=== PATIENT | female | born 1980 | race Caucasian/White ===

== ENCOUNTER → 2019-02-13 09:35 | Outpatient (BNVA) | payer MEDICARE, MEDICAID, SELFPAY | PROVIDERS: Family Provider Physician Assistant; PCP Physician Assistant; Referring Provider Physician Assistant; Visit Provider Specialist | DX: G43.019 Migraine without aura, intractable, without status migrainosus (principal); G62.9 Polyneuropathy, unspecified; Z87.891 Personal history of nicotine dependence | CPT/HCPCS: 99204 ==

== ENCOUNTER 2019-03-27 13:37 | Outpatient (CLI) | payer MEDICARE, MEDICAID, SELFPAY ==
--- NOTE | 2019-03-27 | XR_ITS ---
WS: [id number] LUMBAR SPINE TECHNIQUE: 3 views of the lumbar spine CLINICAL INFORMATION: LOW BACK PAIN COMPARISON: None. FINDINGS: Five pro-ajx-wekrkna lumbar vertebral bodies. Minimal lumbar curve convex right. Cholecystectomy clip s. Mild disc space narrowing L4-L5 and L5-S1. No compression fractures. No spondylolisthesis. Visualized sacroiliac joints are normal. Normal visua lized soft tissues. Partially visualized bowel gas pattern is normal. XR/XR lumbar spine 2-3V* [id number] IMPRESSION: 1. Minimal lumbar curve convex right. 2. Mild disc space narrowing L4-L5 and L5-S1.
--- NOTE | 2019-03-27 | US_ITS ---
WS: [id number] ULTRASOUND ABDOMEN CLINICAL INFORMATION: LIVER FAILURE ACUTE COMPARISON: None. FINDINGS: Liver Size: Normal. Craniocaudal length: 12.9 cm. Echogenicity: Coarse consistent with fatty infiltration Surface nodularity: None. Mass (size and location): None. Bile ducts Intrahepatic ducts: Normal. Common bile duct diameter: 3.7 mm. Gallbladder Removed Pancreas Not well seen Spleen Splenomegaly: None. Craniocaudal length: 11.0 cm. Right kidney: Normal. Hydronephrosis: None. Size: 10.6 cm x 4.6 cm x 4.8 cm Left kidney: Normal. Hydronephrosis: None. Size: 9.2 cm x 5.6 cm x 4.9 cm. Abdominal aorta and IVC Visualized portions are normal. Ascites: None. US/US abdomen complete* [id number] IMPRESSION: 1. Slightly coarse hepatic echogenicity consistent with fatty infiltration.Cor relation with liver function tests. 2. Abdomen otherwise unremarkable
== END 2019-03-27 13:38 | disposition home or self-care (01) ==
LOC: RADOUTREAD 15:11
PROVIDERS: Family Provider Physician Assistant; PCP Physician Assistant; Visit Provider Physician Assistant
DX: Z76.89 Persons encountering health services in other specified circumstances (principal)

== ENCOUNTER 2019-05-21 09:41 | Outpatient (CLI) | payer MEDICARE, MEDICAID, SELFPAY ==
--- NOTE | 2019-05-21 09:47 | MR_ITS ---
WS: [id number] MRI CERVICAL SPINE NONCONTRAST TECHNIQUE: Sagittal T1, T2 and STIR imaging. Axial T2, gradient, and fiesta imaging. CLINICAL INFORMATION: ATAXIA COMPARISON: MRI 9 2018 FINDINGS: Straightening of the normal cervical lordosis. Some images are limited by motion. Cord signal is norm al. Minimal disc bulging at C3-C4 C4-C5 and C5-C6. No significant central canal stenosis. C2-C3: Normal. C3-C4: Minimal annular bulging. Spinal canal foramen are patent. C4-C5: Minimal disc bulging with a tiny central protrusion. Mild facet arthropathy. Mild right forami nal narrowing. Spinal canal and left foramen are patent.. C5-C6: Mild disc bulging with osteophytic ridging. Mild to moderate right and no significant left for aminal narrowing. Mild facet arthropathy. Spinal canal is patent. C6-C7: Mild osteophytic ridging. Mild right and no significant left foraminal narrowing. Spinal canal is patent. C7-T1: Normal. Visualized brain stem structures: Normal. Prevertebral soft tissues: Normal. MR/MR cervical spin wo con* [id number] IMPRESSION: 1. Straightening of the normal cervical lordosis. Cord signal is normal. No si gnificant central canal narrowing. 2. Osteophytic ridging C5-C6 with mild to moderate right foraminal narrowing u nchanged. Mild facet arthropathy. 3. Minimal disc bulging C3-C4 and C4-C5 with tiny shallow central protrusions . This is unchanged. 4. Mild right C4-5 and C6-7 foraminal narrowing.
--- NOTE | 2019-05-21 09:48 | MR_ITS ---
WS: [id number] MRI LUMBAR SPINE NONCONTRAST TECHNIQUE: Sagittal T1, T2 and STIR imaging. Axial T1 and T2 imaging. CLINICAL INFORMATION: LOW BACK PAIN COMPARISON: MRI October 11, 2018 FINDINGS: Mild lumbar curve. No acute compression. Mild disc bulging L4-L5 and L5-S1. A few Schmorl's nodes in the lower thoracic spine. L1-L2: Normal. L2-L3: Normal. L3-L4: No significant disc bulging. Mild facet arthropathy. Spinal canal and foramen are patent. L4-L5: Mild annular bulging with a small shallow central protrusion. Narrowing of subarticular recess with slight impingement traversing L5 nerve roots. Mild facet arthropathy. Mild bilateral foraminal narrowing. L5-S1: Mild disc bulging with a shallow central protrusion. Slight effacement of ventral thecal sac. Slight encroachment traversing S1 nerve roots. Mild bilateral foraminal narrowing left greater than r ight Mild facet arthropathy. Visualized pelvic bony structures: Normal. Paravertebral soft tissues: Normal. MR/MR lumbar spine wo con* [id number] IMPRESSION: 1. Mild lumbar curve. No acute compression. No high-grade central canal stenos is. 2. Shallow central disc protrusion L4-5 impinges the subarticular recess bilat erally and traversing L5 nerve roots. This is unchanged from previous. 3. Shallow central disc protrusion L5-S1 with encroachment traversing S1 nerve roots bilaterally. 4. Mild bilateral L4-5 and left greater than right L5-S1 foraminal narrowing. 5. Mild facet arthropathy L4-L5 and L5-S1. 6. No significant interval changes since October 11, 2018.
--- NOTE | 2019-05-21 09:48 | MR_ITS ---
WS: [id number] MRI HEAD WITH CONTRAST TECHNIQUE: Sagittal T1, T2 axial, T2 axial FLAIR, axial susceptibility weighted imaging, axial diffus ion weighted images, and coronal T2 images were obtained. Pre and post-T1 axial and post T1 coronal i mages. ADC and FSPGR images. CLINICAL INFORMATION: ATAXIA COMPARISON: CT September 11, 2017 FINDINGS: No evidence of restricted diffusion to suggest acute ischemia. Ventricular system and basal cisterns are patent. Moderate to advanced patchy supra tentorial white matter changes nonspecific in a patient this age but can be seen with hypertension, diabetes, collagen vascular disease, Lyme disease, and d emyelinating disease. Some of the lesions are pericallosal distribution although no significant atrop hy involving the corpus callosum. No significant T1 hypointense lesion load. No abnormal gadolinium e nhancement to indicate active demyelination. Normal posterior fossa. Normal vascular flow voids at the skull base. No extra-axial fluid collection s. Paranasal sinuses and mastoid air cells are well aerated. Normal optic chiasm and pituitary infundibulum. Normal visualized dural venous sinuses. Mild symmetri c atrophy involving the temporal lobes and hippocampal formations. Mild parenchymal volume loss. MR/MR head wo/w con [id number] IMPRESSION: 1. Moderate patchy supratentorial white matter changes advanced and nonspecifi c in a patient this age but can be seen with hypertension, diabetes, collagen v ascular disease, Lyme disease, and demyelinating disease. 2. No significant T1 hypointense lesion load. No abnormal gadolinium enhanceme nt. 3. No significant thinning of the corpus callosum. 4. No hemosiderin on susceptibly weighted images. 5. Mild symmetric atrophy involving the temporal lobes hippocampal formations. Mild global parenchymal volume loss.
== END 2019-05-21 09:42 | disposition home or self-care (01) ==
LOC: RADWPI 09:46
PROVIDERS: Family Provider Physician Assistant; PCP Physician Assistant; Visit Provider Physician Assistant
DX: R27.0 Ataxia, unspecified (principal); M51.26 Other intervertebral disc displacement, lumbar region; M51.17 Intervertebral disc disorders with radiculopathy, lumbosacral region; M48.07 Spinal stenosis, lumbosacral region; M47.817 Spondylosis without myelopathy or radiculopathy, lumbosacral region
CPT/HCPCS: 70553; 72141; 72148; A9579

== ENCOUNTER → 2019-07-18 08:16 | Outpatient (BNVA) | payer MEDICARE, MEDICAID, SELFPAY | PROVIDERS: Family Provider Physician Assistant; PCP Physician Assistant; Visit Provider Psychiatry & Neurology Psychiatry | DX: F60.3 Borderline personality disorder (principal); F45.1 Undifferentiated somatoform disorder; F43.9 Reaction to severe stress, unspecified | CPT/HCPCS: 99214 ==

== ENCOUNTER 2019-10-03 17:05 | Emergency (ER) | payer MEDICARE, MEDICAID, SELFPAY ==
[2019-10-03] VITALS (7 sets, daily range): BP systolic 108–125; BP diastolic 58–74; PULSE 66–89; RESP 14–21; TEMP 37.2; O2SAT 96–100; BMI 25.7
--- NOTE | 2019-10-03 18:00 | ED_ITS ---
HPI - Abdominal Pain General: Chief Complaint: Abdominal Pain Stated Complaint: abd pain Time Seen by Provider: 10/03/19 18:00 History of Present Illness: HPI narrative: Patient is a 39-year-old female comes to the ED with abdominal pain. Patient has a past surgical history of gastric bypass. Patient has a past medical history of migraines, peripheral neuropathy, severe somatic symptom disorder and borderline personality disorder. Patient states for the last 4 days she has been having severe pain throughout the abdomen. She describes pain in the periumbilical region, left upper quadrant, left lower quadrant and right lower quadrant. She says the pain is sharp and she rates it at 10 out of 10. She has some nausea that comes with the pain but denies any emesis. Patient says for the last couple nights she has woken up sweaty. Patient also endorses being constipated and has not had a bowel movement in approximately 4 to 5 days. Patient also states she has not been eating or drinking much for the past couple days due to the pain. Denies fever, chills, chest pain, shortness of breath, diarrhea, blood in stool, hematuria or dysuria. Associated Symptoms: Denies chills, constipation, diarrhea, dysuria, fever(s), hematochezia, hematuria, nausea and vomiting Review of Systems Const: Reports: night sweats and other (Generalized weakness); Denies: fever(s), chills or fatigue Eyes: Denies: change in vision or eye discomfort ENMT: Denies: throat pain, odynophagia, nasal discharge or nasal congestion Card: Denies: chest pain, palpitations, edema, swelling of feet/ankles, dyspnea on exertion or orthopnea Resp: Denies: dyspnea, productive cough or non-productive cough GI: Reports: abdominal pain (Generalized throughout abdomen.); Denies: nausea, vomiting, diarrhea, constipation or hematochezia : Denies: flank pain, dysuria or hematuria Musc: Denies: neck pain, back pain or extremity swelling Skin/Breast: Denies: rash or new lesions Neuro: Denies: headache(s), numbness in extremities or weakness in extremities PFS ED PFSH: Family History Grandmother Stroke Social History Smoking and tobacco status: former smoker Alcohol intake: former Physical Exam Const: COMMON NORMALS: patient oriented x3 and alert GENERAL APPEARANCE: cooperative and in distress (Patient is sobbing and crying in pain when I entered the room.) HENMT: COMMON NORMALS: normocephalic HEAD & SCALP: normocephalic MOUTH: Normal oral and palatal mucosa present THROAT: posterior oropharynx normal and uvula midline Eye: COMMON NORMALS: Equal, round and reactive pupils present PUPIL: Yes Equal, round and reactive pupils present Neck/C-Spine: COMMON NORMALS: supple GENERAL: Yes normal visual inspection Resp: COMMON NORMALS: normal respiratory effort, No retractions, No use of accessory muscles and clear to auscultation bilaterally AUSCULTATION: clear to auscultation bilaterally Cardio: COMMON NORMALS: regular rate, regular rhythm, S1 normal heart sound present, S2 normal heart sound present, No gallops present (Cardio), No clicks present (Cardio), No murmurs present (Cardio) and Peripheral pulses 2+ throughout RATE: regular rate RHYTHM: regular rhythm HEART SOUNDS: S1 normal heart sound present and S2 normal heart sound present PERIPHERAL PULSES: Peripheral pulses 2+ throughout GI: COMMON NORMALS: Normal to inspection, nondistended, normoactive bowel sounds present, Soft to palpation and no masses PALPATION: Yes Soft to palpation and Yes Tenderness to palpation present (GI) Details: LLQ, RLQ, LUQ and other (Periumbilical region) : COMMON NORMALS: Yes no CVA tenderness BLADDER/KIDNEY EXAM: Yes no CVA tenderness Back/Pelvis: COMMON NORMALS: no CVA tenderness Extremity: COMMON NORMALS: normal to inspection and no pedal edema Neuro: COMMON NORMALS: patient oriented x3 SENSORIUM/ORIENTATION: Yes alert GAIT: Yes Normal gait present Skin: COMMON NORMALS: no rashes or lesions noted GENERAL SKIN EXAM: no rashes or lesions noted and dry skin Procedures Stool Hemoccult Procedural Steps Taken: stool placed in appropriate test area, developer placed on stool and control areas and controls appropriately positive and negative Hemoccult result: negative Additional Comments: The female nurse performed digital rectal exam on patient while I was there at bedside. Patient requested female to perform digital rectal exam. Nurse then wiped digital contents on lab card and performed test for results. Negative for blood. Course Reevaluation(s): Reevaluation #1: Patient abdominal pain greatly improved after pain meds and she is feeling much better. Vital Signs: Vital signs: Vital Signs Temperature 99.0 F 10/03/19 17:31 Pulse Rate 66 10/03/19 21:21 Respiratory Rate 18 10/03/19 21:21 Blood Pressure 108/58 10/03/19 21:21 Pulse Oximetry 100 10/03/19 21:21 MDM - Abdominal Pain MDM Narrative: Medical decision making narrative: Patient is a 39-year-old female comes to the ED with abdominal pain. Patient has a past medical history of gastric bypass surgery. she endorses having some constipation. Physical exam showed generalized abdominal tenderness throughout right lower quadrant, left lower quadrant, left upper quadrant and periumbilical. White blood cell count 4.2 and hemoglobin 8.4. CMP was unremarkable. Lipase 21 and hCG negative. UA unremarkable. CT of the abdomen showed no real acute findings except for some stool in the colon. Patient says she had stopped taking her iron supplement approximately a year ago. Patient was diagnosed with anemia and constipation and was sent home with a prescription for MiraLAX and ferrous sulfate. Patient was told to follow-up with her PCP in the next 1 to 3 days for reevaluation and to recheck hemoglobin lab. Return to ED precautions given. Patient understood and agreed with plan. Lab Data: Attestation: I reviewed the patient's lab results. Labs: Lab Results 10/03/19 10/03/19 10/03/19 Range/Units 19:28 19:28 19:28 WBC 4.2 (4.0-10.0) 10^3/ uL RBC 4.49 (4.1-5.3) 10^6/u L Hgb 8.4 L (11.5-15.3) g/dL Hct 30.7 L (37.0-47.0) % MCV 68.4 L (81-99) fL MCH 18.7 L (28.0-34.0) pg MCHC 27.4 L (30.0-36.0) g/dL RDW 17.1 H (12.1-15.1) % Plt Count 338 (130-400) 10^3/c mm MPV 9.5 (7.4-10.4) fL Neut % (Auto) 40.4 % Lymph % (Auto) 45.5 % [facility] % (Auto) 10.0 % Eos % (Auto) 2.2 % Baso % (Auto) 1.7 % Neut # (Auto) 1.69 L (1.8-7.7) 10^3/u L Lymph # (Auto) 1.9 (0.8-4.8) 10^3/u L [facility] # (Auto) 0.4 (0.2-0.9) 10^3/u L Eos # (Auto) 0.1 (0.0-0.8) 10^3/u L Baso # (Auto) 0.1 (0.0-0.1) 10^3/u L Nucleated RBC % (a uto) 0 % Nucleated RBCs # 0.0 /100WBC Sodium 136 (136-145) mmol/L Potassium 4.3 (3.5-5.1) mmol/L Chloride 102 (98-107) mmol/L Carbon Dioxide 24 (22-29) mmol/L Anion Gap 14.3 (5-19) BUN 14 (6-20) mg/dL Creatinine 0.6 (0.5-0.9) mg/dL GFR Calculation 111.3 (90-130) mL/min Glucose 86 (65-115) mg/dL Calculated Osmolal ity 278 L (285-295) mOsm/k g Calcium 8.3 L (8.5-10.5) mg/dL Total Bilirubin 0.3 (0.15-1.2) mg/dL AST 19 (0-32) U/L ALT 8 (0-33) U/L Alkaline Phosphata se 67 (35-105) IU/L Total Protein 6.1 L (6.6-8.7) g/dL Albumin 3.5 (3.5-5.2) g/dL Globulin 2.6 (1.3-4.6) g/dL Lipase 21 (13-60) U/L HCG, Qual Negative (Negative) Urine Color (Yellow) Urine Appearance (CLEAR) Urine pH (5-7) Ur Specific Gravit y (1.005-1.030) Urine Protein (Negative) Urine Glucose (UA) (Normal) Urine Ketones (Negative) Urine Blood (Negative) Urine Nitrate (Negative) Urine Bilirubin (NEGATIVE) Prot Sulfosalicyli c Acd (Negative) Urine Urobilinogen (Negative) mg/dL Ur Leukocyte Lulú ase (Negative) 10/03/19 Range/Units 20:14 WBC (4.0-10.0) 10^3/ uL RBC (4.1-5.3) 10^6/u L Hgb (11.5-15.3) g/dL Hct (37.0-47.0) % MCV (81-99) fL MCH (28.0-34.0) pg MCHC (30.0-36.0) g/dL RDW (12.1-15.1) % Plt Count (130-400) 10^3/c mm MPV (7.4-10.4) fL Neut % (Auto) % Lymph % (Auto) % [facility] % (Auto) % Eos % (Auto) % Baso % (Auto) % Neut # (Auto) (1.8-7.7) 10^3/u L Lymph # (Auto) (0.8-4.8) 10^3/u L [facility] # (Auto) (0.2-0.9) 10^3/u L Eos # (Auto) (0.0-0.8) 10^3/u L Baso # (Auto) (0.0-0.1) 10^3/u L Nucleated RBC % (a uto) % Nucleated RBCs # /100WBC Sodium (136-145) mmol/L Potassium (3.5-5.1) mmol/L Chloride (98-107) mmol/L Carbon Dioxide (22-29) mmol/L Anion Gap (5-19) BUN (6-20) mg/dL Creatinine (0.5-0.9) mg/dL GFR Calculation (90-130) mL/min Glucose (65-115) mg/dL Calculated Osmolal ity (285-295) mOsm/k g Calcium (8.5-10.5) mg/dL Total Bilirubin (0.15-1.2) mg/dL AST (0-32) U/L ALT (0-33) U/L Alkaline Phosphata se (35-105) IU/L Total Protein (6.6-8.7) g/dL Albumin (3.5-5.2) g/dL Globulin (1.3-4.6) g/dL Lipase (13-60) U/L HCG, Qual (Negative) Urine Color Yellow (Yellow) Urine Appearance Clear (CLEAR) Urine pH 8 H (5-7) Ur Specific Gravit y 1.015 (1.005-1.030) Urine Protein Neg (Negative) Urine Glucose (UA) Norm (Normal) Urine Ketones Negative (Negative) Urine Blood Neg (Negative) Urine Nitrate Negative (Negative) Urine Bilirubin Neg (NEGATIVE) Prot Sulfosalicyli c Acd Negative (Negative) Urine Urobilinogen 1 H (Negative) mg/dL Ur Leukocyte Lulú ase Negative (Negative) Imaging Data ^: CT Abd/Pel: Attestation: I personally reviewed and interpreted this imaging study as follows: Radiologist's impression: [place] [address] CT Scan Report Signed Patient: Candace Kohler Unit #: [id number] : 1980 Age/Sex: 39 / F ADM Date: 10/03/19 Loc: ER Room/Bed: Attending Dr: Ordering Provider/Ordering MD: Michael Wilson Date of Service: 10/03/19 Procedure(s): CT abdomen pelvis w con* [id number] Accession Number(s): [id number] Report Number: [id number] PROCEDURE INFORMATION: Exam: CT Abdomen And Pelvis With Contrast Exam date and time: 10/03/2019 6:25 PM Age: 39 years old Clinical indication: Abdominal pain; Prior surgery; Surgery type: Tubal, gb, ; Additional info: Periumbilical abdominal pain TECHNIQUE: Imaging protocol: Computed tomography of the abdomen and pelvis with intravenous contrast. Sagittal and coronal reformatted images were created and reviewed. Radiation optimization: All CT scans at this facility use at least one of these dose optimization techniques: automated exposure control; mA and/or kV adjustment per patient size (includes targeted exams where dose is matched to clinical indication); or iterative reconstruction. Contrast material: OMNI 300; Contrast volume: 95 ml; Contrast route: INTRAVENOUS (IV); COMPARISON: CT abdomen pelvis w con* [id number] 06/30/2018 2:57 PM RADIATION DOSE METRICS: Total DLP (mGy-cm): 857.91 FINDINGS: Lungs: Visualized lungs are clear. Pleural space: No pleural effusion. Heart: Visualized portions of the heart are unremarkable. Liver: The liver is unremarkable. Gallbladder and bile ducts: Stable findings consistent with a previous cholecystectomy. No biliary ductal dilatation. Pancreas: The pancreas is unremarkable. No pancreatic ductal dilatation. Spleen: Calcified granuloma in the spleen. Adrenals: The right and left adrenal glands are unremarkable. Kidneys and ureters: The right and left kidneys are unremarkable. The right and left ureters are unremarkable. Stomach and bowel: The stable changes consistent with a Dane-en-Y gastric bypass. Increased fecal content in the colon. Fluid within the small bowel without evidence of bowel wall thickening. Appendix: The appendix is visualized and is unremarkable. No findings to suggest acute appendicitis. Intraperitoneal space: No free intraperitoneal air. No ascites. No loculated fluid collections to suggest an abscess. Vasculature: No evidence for aortic aneurysm or aortic dissection. Hepatic veins, portal veins, splenic vein, and SMV are patent. Lymph nodes: No lymphadenopathy. Bladder: The bladder is incompletely filled, which can limit evaluation. No focal abnormality in the bladder however. Reproductive: Right ovarian cyst with an enhancing wall, possibly representing a degenerating ovarian cyst. This measures 1.5 x 1.3 cm (series 2, image 75). The uterus is unremarkable. The left ovary is unremarkable. Bones/joints: Multiple bone islands in the visualized skeleton. Mild degenerative changes in the visualized spine. Soft tissues: No acute abnormality in the extra-abdominal soft tissues. CT/CT abdomen pelvis w con* [id number] IMPRESSION: 1. Fluid within the small bowel without evidence of bowel wall thickening. This may reflect viral gastroenteritis in the appropriate clinical situation. 2. Probable degenerating cyst in the right ovary. 3. Incidental/nonacute findings are listed in the report. Radiation Dose CTDIVOL = (mGy): DLP = 857.91 (mGy-cm) Dictated By: Linh Patel MD Signed By: Linh Patel MD Signed Date/Time: 10/03/191927 DD/ 25 Discharge Plan Discharge Patient Disposition: Home Clinical Impression: Abdominal pain Qualifiers: Abdominal location: generalized Qualified Code(s): R10.84 - Generalized abdominal pain Constipation Qualifiers: Constipation type: slow transit constipation Qualified Code(s): K59.01 - Slow transit constipation Anemia Qualifiers: Anemia type: iron deficiency Iron deficiency anemia type: inadequate dietary iron intake Qualified Code(s): D50.8 - Other iron deficiency anemias Condition: Stable Prescriptions: New Iron (ferrous sulfate) 325 mg (65 mg iron) tablet 325 mg PO BID Qty: 60 RF: 0 Miralax 17 gram/dose powder 17 gm PO DAILY PRN (Reason: constipation) Qty: 119 RF: 0 No Action risperidone [Risperdal] 1 mg tablet 1.5 mg PO BID PRN (Reason: UNKNOWN) RF: 0 ondansetron HCl [Zofran] 4 mg tablet 4 mg PO Q6H PRN (Reason: N/V) RF: 0 methocarbamol [Robaxin-750] 750 mg tablet 750 mg PO TID PRN (Reason: MUSCLE SPASMS) RF: 0 hydroxyzine HCl 50 mg tablet 50 mg PO TID PRN (Reason: UNKNOWN) RF: 0 rizatriptan [Maxalt] 10 mg tablet 10 mg PO DAILY PRN (Reason: migraine headache) RF: 0 melatonin 10 mg Tablet Extended Release 20 - 30 mg PO BEDTIME RF: 0 Discharge Orders: Discharge Order (Routine); Ordered 10/03/19 Ordered By: Michael Wilson Referrals: Marianna Kitchen PA [Primary Care Provider] - Discharge Diet: As Directed and Regular Discharge Activity: Increase activity as tolerated Patient Instructions: Iron Supplements (By mouth), Iron Rich Diet (ED), Iron Deficiency Anemia (ED), Anemia (ED) Activity Restrictions/Additional Instructions: Follow-up with medical provider as directed. Contact primary care physician tomorrow morning and set up an appointment within the next 1 to 3 days to recheck hemoglobin lab. Take medications as prescribed. Return to the ER or your medical provider if condition worsens. Please read and understand discharge instructions. If any questions, please ask. Discharge Date/Time: 10/03/19 21:21 Coding Level of Care Code ED [employer] for Sheyla Fwshine Exam Comprehensive
--- NOTE | 2019-10-03 18:18 | CTR_ITS ---
PROCEDURE INFORMATION: Exam: CT Abdomen And Pelvis With Contrast Exam date and time: 10/03/2019 6:25 PM Age: 39 years old Clinical indication: Abdominal pain; Prior surgery; Surgery type: Tubal, gb, ; Additional info: Periumbilical abdominal pain TECHNIQUE: Imaging protocol: Computed tomography of the abdomen and pelvis with intravenous contrast. Sagittal and coronal reformatted images were created and reviewed. Radiation optimization: All CT scans at this facility use at least one of these dose optimization techniques: automated exposure control; mA and/or kV adjustment per patient size (includes targeted exams where dose is matched to clinical indication); or iterative reconstruction. Contrast material: OMNI 300; Contrast volume: 95 ml; Contrast route: INTRAVENOUS (IV); COMPARISON: CT abdomen pelvis w con* [id number] 06/30/2018 2:57 PM RADIATION DOSE METRICS: Total DLP (mGy-cm): 857.91 FINDINGS: Lungs: Visualized lungs are clear. Pleural space: No pleural effusion. Heart: Visualized portions of the heart are unremarkable. Liver: The liver is unremarkable. Gallbladder and bile ducts: Stable findings consistent with a previous cholecystectomy. No biliary ductal dilatation. Pancreas: The pancreas is unremarkable. No pancreatic ductal dilatation. Spleen: Calcified granuloma in the spleen. Adrenals: The right and left adrenal glands are unremarkable. Kidneys and ureters: The right and left kidneys are unremarkable. The right and left ureters are unremarkable. Stomach and bowel: The stable changes consistent with a Dane-en-Y gastric bypass. Increased fecal content in the colon. Fluid within the small bowel without evidence of bowel wall thickening. Appendix: The appendix is visualized and is unremarkable. No findings to suggest acute appendicitis. Intraperitoneal space: No free intraperitoneal air. No ascites. No loculated fluid collections to suggest an abscess. Vasculature: No evidence for aortic aneurysm or aortic dissection. Hepatic veins, portal veins, splenic vein, and SMV are patent. Lymph nodes: No lymphadenopathy. Bladder: The bladder is incompletely filled, which can limit evaluation. No focal abnormality in the bladder however. Reproductive: Right ovarian cyst with an enhancing wall, possibly representing a degenerating ovarian cyst. This measures 1.5 x 1.3 cm (series 2, image 75). The uterus is unremarkable. The left ovary is unremarkable. Bones/joints: Multiple bone islands in the visualized skeleton. Mild degenerative changes in the visualized spine. Soft tissues: No acute abnormality in the extra-abdominal soft tissues. CT/CT abdomen pelvis w con* [id number] IMPRESSION: 1. Fluid within the small bowel without evidence of bowel wall thickening. This may reflect viral gastroenteritis in the appropriate clinical situation. 2. Probable degenerating cyst in the right ovary. 3. Incidental/nonacute findings are listed in the report. Radiation Dose CTDIVOL = (mGy): DLP = 857.91 (mGy-cm)
[2019-10-03] MEDS: iohexol 300 mg/mL 100 mL Btl IV (19:04)
[2019-10-03] MEDS: ondansetron 2 mg/ML SDV 2 mL 4 MG IVP (19:13)
[2019-10-03] MEDS: morphine 4 mg/mL SDV 1 mL IVP (19:13)
[2019-10-03 19:37] LABS: Basophils # 0.1 10^3/uL (0.0-0.1); Basophils % 1.7 %; Eosinophils # 0.1 10^3/uL (0.0-0.8); Eosinophils % 2.2 %; Hematocrit 30.7 % (37.0-47.0); Hemoglobin 8.4 g/dL (11.5-15.3); Lymphocytes # 1.9 10^3/uL (0.8-4.8); Lymphocytes % 45.5 %; Mean Corpuscular HGB Conc 27.4 g/dL (30.0-36.0); Mean Corpuscular Hemoglobin 18.7 pg (28.0-34.0); Mean Corpuscular Volume 68.4 fL (81-99); Mean Platelet Volume 9.5 fL (7.4-10.4); Monocytes # 0.4 10^3/uL (0.2-0.9); Neutrophils # 1.69 10^3/uL (1.8-7.7); Neutrophils % 40.4 %; Nucleated Red Blood Cells % 0 %; Platelet Count 338 10^3/cmm (130-400); Red Blood Count 4.49 10^6/uL (4.1-5.3); Red Cell Distribution Width 17.1 % (12.1-15.1); White Blood Count 4.2 10^3/uL (4.0-10.0)
[2019-10-03 19:50] LABS: HCG, Serum Qual Negative (Negative)
[2019-10-03 19:54] LABS: Alanine Aminotransferase 8 U/L (0-33); Albumin Level 3.5 g/dL (3.5-5.2); Alkaline Phosphatase 67 IU/L (35-105); Anion Gap 14.3 (5-19); Aspartate Amino Transferase 19 U/L (0-32); Blood Urea Nitrogen 14 mg/dL (6-20); Calcium 8.3 mg/dL (8.5-10.5); Carbon Dioxide 24 mmol/L (22-29); Chloride 102 mmol/L (98-107); Globulin 2.6 g/dL (1.3-4.6); Glomerular Filtration Rate 111.3 mL/min (90-130); Glucose 86 mg/dL (65-115); Lipase 21 U/L (13-60); Osmolality Calculated 278 mOsm/kg (285-295); Potassium 4.3 mmol/L (3.5-5.1); Sodium 136 mmol/L (136-145); Total Bilirubin 0.3 mg/dL (0.15-1.2); Total Protein 6.1 g/dL (6.6-8.7)
[2019-10-03 20:31] LABS: Add Urine Microscopic? NO
[2019-10-03 20:37] LABS: Bilirubin Urine Neg (NEGATIVE); Blood Urine Neg (Negative); Glucose Urine UA Norm (Normal); Ketones Urine Negative (Negative); Leukocyte Esterase Urine Negative (Negative); Nitrate Urine Negative (Negative); Protein Urine Neg (Negative); Specific Gravity, Urine 1.015 (1.005-1.030); Sulfosalicylic Acid Urine Negative (Negative); Urine Appearance Clear (CLEAR); Urine Color Yellow (Yellow); Urobilinogen Urine 1 mg/dL (Negative); pH Urine 8 (5-7)
== END 2019-10-03 21:21 | disposition home or self-care (01) ==
PROVIDERS: Emergency Medicine; Emergency Provider Physician Assistant; PCP Physician Assistant
DX: K59.01 Slow transit constipation (principal); D50.8 Other iron deficiency anemias; Z87.891 Personal history of nicotine dependence
CPT/HCPCS: 12345; 36415; 74177; 80053; 81003; 82272; 83690; 84703; 85025; 87040; 96374; 96375; 99283; 99284; J2270; J2405; Q9967

== ENCOUNTER → 2019-11-30 09:20 | Outpatient (BNVA) | payer MEDICARE, MEDICAID, SELFPAY | PROVIDERS: PCP Physician Assistant; Referring Provider Physician Assistant; Visit Provider Anesthesiology Pain Medicine | DX: M51.36 Other intervertebral disc degeneration, lumbar region (principal); M47.816 Spondylosis without myelopathy or radiculopathy, lumbar region; M54.16 Radiculopathy, lumbar region; M54.9 Dorsalgia, unspecified; M50.90 Cervical disc disorder, unspecified, unspecified cervical region; G43.019 Migraine without aura, intractable, without status migrainosus; F60.3 Borderline personality disorder; F45.1 Undifferentiated somatoform disorder; F43.9 Reaction to severe stress, unspecified; Z79.899 Other long term (current) drug therapy | CPT/HCPCS: 99205 ==

== ENCOUNTER 2020-01-18 12:45 | Emergency (ER) | payer MEDICARE, MEDICAID, SELFPAY ==
[2020-01-18 12:51] VITALS: BP 124/80; PULSE 85; RESP 18; TEMP 36.7; O2SAT 99; BMI 26.6
[2020-01-18 13:09] VITALS: BP 136/72; PULSE 101; RESP 18; O2SAT 98
--- NOTE | 2020-01-18 13:39 | W.ED.SKABFB ---
HPI - Skin/Abscess/Foreign Bdy General: Chief complaint: Skin/Abscess/Foreign Body Stated complaint: HAD WORMS @ 1 YR AGO, POSS RETURN/SENT BY PCP Time Seen by Provider: 01/18/20 13:07 History of Present Illness: HPI narrative: Patient is a 39-year-old female comes to the ED with possible cellulitis. Patient states that she multiple lesions on her upper back by her neck that are sore and have opened up and bled. She has been scratching and picking at them. She is anxious and very worried that she might have some kind of parasites on her skin. Associated symptoms: Deny chills, fever(s), nausea or vomiting Review of Systems Const: Denies: fever(s), chills or fatigue Eyes: Denies: change in vision or eye discomfort ENMT: Denies: throat pain, odynophagia, nasal discharge or nasal congestion Card: Denies: chest pain, palpitations, edema, swelling of feet/ankles, dyspnea on exertion or orthopnea Resp: Denies: dyspnea, productive cough or non-productive cough GI: Denies: abdominal pain, nausea, vomiting, diarrhea, constipation or hematochezia : Denies: flank pain, dysuria or hematuria Musc: Denies: neck pain, back pain or extremity swelling Skin/Breast: Reports: new lesions (On upper back); Denies: rash Neuro: Denies: headache(s), numbness in extremities or weakness in extremities PFS ED PFSH: Family History Grandmother Stroke Social History Smoking and tobacco status: former smoker Alcohol intake: former Physical Exam Const: COMMON NORMALS: patient oriented x3 and alert GENERAL APPEARANCE: cooperative, comfortable and anxious HENMT: COMMON NORMALS: normocephalic HEAD & SCALP: normocephalic MOUTH: Normal oral and palatal mucosa present THROAT: posterior oropharynx normal and uvula midline Eye: COMMON NORMALS: Equal, round and reactive pupils present PUPIL: Yes Equal, round and reactive pupils present Neck/C-Spine: COMMON NORMALS: supple GENERAL: Yes normal visual inspection Resp: COMMON NORMALS: normal respiratory effort, No retractions, No use of accessory muscles and clear to auscultation bilaterally AUSCULTATION: clear to auscultation bilaterally Cardio: COMMON NORMALS: regular rate, regular rhythm, S1 normal heart sound present, S2 normal heart sound present, No gallops present (Cardio), No clicks present (Cardio), No murmurs present (Cardio) and Peripheral pulses 2+ throughout RATE: regular rate RHYTHM: regular rhythm HEART SOUNDS: S1 normal heart sound present and S2 normal heart sound present PERIPHERAL PULSES: Peripheral pulses 2+ throughout GI: COMMON NORMALS: Normal to inspection, nondistended, normoactive bowel sounds present, Soft to palpation, non-tender and no masses PALPATION: Yes Soft to palpation : COMMON NORMALS: Yes no CVA tenderness BLADDER/KIDNEY EXAM: Yes no CVA tenderness Back/Pelvis: COMMON NORMALS: no CVA tenderness Extremity: COMMON NORMALS: normal to inspection Neuro: COMMON NORMALS: patient oriented x3 and moves all extremities SENSORIUM/ORIENTATION: Yes alert Skin: NARRATIVE SKIN EXAM: Patient has 3 superficial skin lesions that are approximately 3 to 5 mm in diameter and are ulcerated. I have some surrounding erythema, warmth and tenderness. Findings suggestive of cellulitis. Course Reevaluation(s): Reevaluation #1: I talked with patient about hemoglobin lab of 7.5 today and she told me that she has iron deficiency anemia and has not been taking any iron supplements. I informed her the importance on taking her iron supplements to help improve her hemoglobin levels. Patient understood. Vital Signs: Vital signs: Vital Signs Temperature 98.0 F 01/18/20 12:51 Pulse Rate 101 H 01/18/20 13:09 Respiratory Rate 18 01/18/20 13:09 Blood Pressure 136/72 01/18/20 13:09 Pulse Oximetry 98 01/18/20 13:09 MDM - Skin/Abscess/Foreign Bdy MDM Narrative: Medical decision making narrative: Patient is a 39-year-old female who comes to the ED with 3 superficial lesions on upper back. Patient appears no acute distress or pain but is very anxious about lesions on skin. Exam findings suggestive of cellulitis developing. Patient's hemoglobin 7.5 but she has been diagnosed with anemia due to iron deficiency and states she has not been taking her iron supplements. Patient's last hemoglobin was 8.4 on 10/03/19. Denies any recent bleeding, blood in stool. Patient diagnosed with cellulitis and anemia and was told to follow-up with her PCP early next week to recheck hemoglobin levels. She was sent home with a prescription of Bactrim and told to start taking her iron supplements daily as previously prescribed. Return to ED precautions given. Patient understood agree with plan. Lab Data: Attestation: I reviewed the patient's lab results. Labs: Lab Results 01/18/20 01/18/20 Range/Units 14:10 14:10 WBC 3.6 L (4.0-10.0) 10^3/ uL RBC 4.40 (4.1-5.3) 10^6/u L Hgb 7.5 L (11.5-15.3) g/dL Hct 28.1 L (37.0-47.0) % MCV 63.9 L (81-99) fL MCH 17.0 L (28.0-34.0) pg MCHC 26.7 L (30.0-36.0) g/dL RDW 18.6 H (12.1-15.1) % Plt Count 334 (130-400) 10^3/c mm MPV 9.3 (7.4-10.4) fL Neut % (Auto) 44.1 % Lymph % (Auto) 43.8 % Elliott % (Auto) 9.3 % Eos % (Auto) 0.8 % Baso % (Auto) 1.7 % Neut # (Auto) 1.57 L (1.8-7.7) 10^3/u L Lymph # (Auto) 1.6 (0.8-4.8) 10^3/u L Elliott # (Auto) 0.3 (0.2-0.9) 10^3/u L Eos # (Auto) 0.0 (0.0-0.8) 10^3/u L Baso # (Auto) 0.1 (0.0-0.1) 10^3/u L Nucleated RBC % (a uto) 0 % Nucleated RBCs # 0.0 /100WBC Sodium 137 (136-145) mmol/L Potassium 4.3 (3.5-5.1) mmol/L Chloride 105 (98-107) mmol/L Carbon Dioxide 23 (22-29) mmol/L Anion Gap 13.3 (5-19) BUN 10 (6-20) mg/dL Creatinine 0.6 (0.5-0.9) mg/dL GFR Calculation 111.3 (90-130) mL/min Glucose 89 (65-115) mg/dL Calculated Osmolal ity 283 L (285-295) mOsm/k g Calcium 8.7 (8.5-10.5) mg/dL Total Bilirubin 0.2 (0.15-1.2) mg/dL AST 18 (0-32) U/L ALT 10 (0-33) U/L Alkaline Phosphata se 79 (35-105) IU/L Total Protein 6.4 L (6.6-8.7) g/dL Albumin 4.0 (3.5-5.2) g/dL Globulin 2.4 (1.3-4.6) g/dL Discharge Plan Discharge Patient Disposition: Home Clinical Impression: Cellulitis Qualifiers: Site of cellulitis: trunk Site of cellulitis of trunk: back Qualified Code(s): L03.312 - Cellulitis of back [any part except buttock] Anemia Qualifiers: Anemia type: iron deficiency Iron deficiency anemia type: unspecified iron deficiency Qualified Code(s): D50.9 - Iron deficiency anemia, unspecified Condition: Stable Prescriptions: New sulfamethoxazole-trimethoprim 800-160 mg tablet 1 tab PO BID 7 Days Qty: 14 RF: 0 No Action cyclobenzaprine 10 mg tablet 10 mg PO TID@11,15,23 RF: 0 celecoxib [Celebrex] 200 mg capsule 200 mg PO DAILY@2300 RF: 0 ondansetron HCl [Zofran] 4 mg tablet 4 mg PO Q6H PRN (Reason: N/V) RF: 0 methocarbamol [Robaxin-750] 750 mg tablet 750 mg PO TID PRN (Reason: MUSCLE SPASMS) RF: 0 hydroxyzine HCl 50 mg tablet 50 mg PO TID PRN (Reason: UNKNOWN) RF: 0 rizatriptan [Maxalt] 10 mg tablet 10 mg PO DAILY PRN (Reason: migraine headache) RF: 0 melatonin 10 mg Tablet Extended Release 20 - 30 mg PO BEDTIME@2300 RF: 0 Iron (ferrous sulfate) 325 mg (65 mg iron) tablet 325 mg PO BID@1100,2300 RF: 0 multivitamin 1 tab PO DAILY@11 RF: 0 Discharge Orders: Discharge ED (Routine); Ordered 01/18/20 Ordered By: Michael Wilson Referrals: Marianna Kitchen PA [Primary Care Provider] - Discharge Diet: Regular Discharge Activity: Resume usual activity Patient Instructions: Cellulitis (ED) Activity Restrictions/Additional Instructions: Follow-up with medical provider as directed early next week for reevaluation. Take medications as prescribed. Continue taking your previously prescribed iron supplements daily to help with your anemia. Return to the ER or your medical provider if condition worsens. Please read and understand discharge instructions. If any questions, please ask. Coding Level of Care Code ED Warehouse Shipping Associate for Chg Fwd Exam Comprehensive
[2020-01-18] MEDS: sulfamethoxazole-trimeth DS 160-800 mg Tablet 1 TAB PO (13:59)
[2020-01-18] MEDS: LORazepam 2 mg Tablet PO (13:59)
[2020-01-18 14:31] LABS: Basophils # 0.1 10^3/uL (0.0-0.1); Basophils % 1.7 %; Eosinophils % 0.8 %; Hematocrit 28.1 % (37.0-47.0); Hemoglobin 7.5 g/dL (11.5-15.3); Lymphocytes # 1.6 10^3/uL (0.8-4.8); Lymphocytes % 43.8 %; Mean Corpuscular HGB Conc 26.7 g/dL (30.0-36.0); Mean Corpuscular Volume 63.9 fL (81-99); Mean Platelet Volume 9.3 fL (7.4-10.4); Monocytes # 0.3 10^3/uL (0.2-0.9); Monocytes % 9.3 %; Neutrophils # 1.57 10^3/uL (1.8-7.7); Neutrophils % 44.1 %; Nucleated Red Blood Cells % 0 %; Platelet Count 334 10^3/cmm (130-400); Red Cell Distribution Width 18.6 % (12.1-15.1); White Blood Count 3.6 10^3/uL (4.0-10.0)
[2020-01-18 14:34] LABS: Alanine Aminotransferase 10 U/L (0-33); Alkaline Phosphatase 79 IU/L (35-105); Anion Gap 13.3 (5-19); Aspartate Amino Transferase 18 U/L (0-32); Blood Urea Nitrogen 10 mg/dL (6-20); Calcium 8.7 mg/dL (8.5-10.5); Carbon Dioxide 23 mmol/L (22-29); Chloride 105 mmol/L (98-107); Globulin 2.4 g/dL (1.3-4.6); Glomerular Filtration Rate 111.3 mL/min (90-130); Glucose 89 mg/dL (65-115); Osmolality Calculated 283 mOsm/kg (285-295); Potassium 4.3 mmol/L (3.5-5.1); Sodium 137 mmol/L (136-145); Total Bilirubin 0.2 mg/dL (0.15-1.2); Total Protein 6.4 g/dL (6.6-8.7)
== END 2020-01-18 15:25 | disposition home or self-care (01) ==
PROVIDERS: Emergency Provider Physician Assistant; PCP Physician Assistant
DX: D50.9 Iron deficiency anemia, unspecified (principal); L03.312 Cellulitis of back [any part except buttock and flank]; Z87.891 Personal history of nicotine dependence
CPT/HCPCS: 12345; 36415; 80053; 85025; 99281; 99283

== ENCOUNTER 2020-07-28 23:21 | Emergency (ER) | payer MEDICARE, MEDICAID, SELFPAY ==
[2020-07-28 23:34] VITALS: BP 125/60; PULSE 98; RESP 16; TEMP 37.1; O2SAT 92; BMI 25.2
--- NOTE | 2020-07-28 23:46 | ECG_ITS ---
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
--- NOTE | 2020-07-29 00:06 | ED_ITS ---
HPI - Weakness General: Chief complaint: Weakness Stated complaint: LIGHT HEADED,HX OF BLOOD LEVEL PROBLEMS Time Seen by Provider: 07/28/20 23:35 Source: patient Mode of arrival: ambulatory Limitations: no limitations History of Present Illness: HPI Narrative: 40-year-old female who states that over the last year she has been having generalized weakness with syncopal events. She states she has had chronic anemia and has not seen a physician over the last year. She states they are unsure what is causing her anemia but states over the last 3 to 4 months she has had increasing weakness and syncopal events. She had some slight dyspnea as well. Denies any chest pain. Denies headache. Denies any bleeding. Associated symptoms: Reports syncope; Denies chills, dysuria, easy bruising, fever(s), nausea or vomiting Review of Systems Const: Denies: fever(s), chills, body aches or change in appetite Eyes: Denies: blurry vision or eye discomfort ENMT: Denies: throat pain or dental pain Card: Reports: syncope Resp: Denies: dyspnea GI: Denies: abdominal pain, nausea, vomiting or diarrhea : Denies: dysuria Musc: Denies: neck pain or back pain Skin/Breast: Denies: rash Neuro: Reports: weakness in extremities Psych: Denies: depression Khari/Lymph: Denies: easy bruising All/Imm: Denies: urticaria PFSH ED PFSH: Family History Grandmother Stroke Social History Smoking and tobacco status: former smoker Alcohol intake: former Female Reproductive History: Date of last menstrual period: 07/09/20 Physical Exam Const: COMMON NORMALS: no acute distress, patient oriented x3 and healthy appearing HENMT: COMMON NORMALS: normocephalic and atraumatic HEAD & SCALP: normocephalic and atraumatic Eye: COMMON NORMALS: Equal, round and reactive pupils present and EOMs intact bilaterally PUPIL: Yes Equal, round and reactive pupils present Neck/C-Spine: COMMON NORMALS: full ROM and supple Chest: COMMONS NORMALS: normal inspection of the chest and normal palpation of entire chest wall Resp: COMMON NORMALS: normal respiratory effort, No retractions, No use of accessory muscles and clear to auscultation bilaterally AUSCULTATION: clear to auscultation bilaterally Cardio: COMMON NORMALS: regular rate, regular rhythm and No murmurs present (Cardio) RATE: regular rate RHYTHM: regular rhythm GI: COMMON NORMALS: Normal to inspection, nondistended, normoactive bowel sounds present, Soft to palpation, non-tender and no masses PALPATION: Yes Soft to palpation Extremity: COMMON NORMALS: normal to inspection and full ROM Neuro: COMMON NORMALS: patient oriented x3, moves all extremities and no focal motor deficits Psych: COMMON NORMALS: mental status grossly normal, Normal thought process present and cooperative THOUGHT PROCESS: Normal thought process present Skin: COMMON NORMALS: no rashes or lesions noted and no wounds GENERAL SKIN EXAM: no rashes or lesions noted Course Vital Signs: Vital signs: Vital Signs Temperature 98.7 F 07/28/20 23:34 Pulse Rate 78 07/29/20 01:25 Respiratory Rate 16 07/29/20 01:25 Blood Pressure 147/106 07/29/20 01:25 Pulse Oximetry 100 07/29/20 01:25 MDM - Weakness MDM Narrative: Medical decision making narrative: Patient presents here with multiple chronic complaints with chronic anemia and weakness. Patient blood work is normal does show some chronic anemia which is actually proved from previous. It is microcytic anemia could be iron deficiency. She is to take iron supplement needs to follow back up with her PCP in 3 to 5 days return if worsening. Lab Data: Labs: Lab Results 07/29/20 07/29/20 07/29/20 Range/Units 00:12 00:12 00:12 WBC 3.8 L (4.0-10.0) 10^3/ uL RBC 4.57 (4.1-5.3) 10^6/u L Hgb 7.7 L (11.5-15.3) g/dL Hct 28.9 L (37.0-47.0) % MCV 63.2 L (81-99) fL MCH 16.8 L (28.0-34.0) pg MCHC 26.6 L (30.0-36.0) g/dL RDW 19.7 H (12.1-15.1) % Plt Count 318 (130-400) 10^3/c mm MPV 9.4 (7.4-10.4) fL Neut % (Auto) 41.6 % Lymph % (Auto) 47.2 % Lamar % (Auto) 8.8 % Eos % (Auto) 0.5 % Baso % (Auto) 1.9 % Neut # (Auto) 1.56 L (1.8-7.7) 10^3/u L Lymph # (Auto) 1.8 (0.8-4.8) 10^3/u L Lamar # (Auto) 0.3 (0.2-0.9) 10^3/u L Eos # (Auto) 0.0 (0.0-0.8) 10^3/u L Baso # (Auto) 0.1 (0.0-0.1) 10^3/u L Nucleated RBC % (a uto) 0 % Nucleated RBCs # 0.0 /100WBC D-Dimer 0.42 (0-0.59) ug/mIFE U Sodium 138 (136-145) mmol/L Potassium 3.7 (3.5-5.1) mmol/L Chloride 101 (98-107) mmol/L Carbon Dioxide 25 (22-29) mmol/L Anion Gap 15.7 (5-19) BUN 10 (6-20) mg/dL Creatinine 0.6 (0.5-0.9) mg/dL GFR Calculation 110.7 (90-130) mL/min Glucose 82 (65-115) mg/dL Calculated Osmolal ity 284 L (285-295) mOsm/k g Calcium 9.2 (8.5-10.5) mg/dL Total Bilirubin 0.2 (0.15-1.2) mg/dL AST 27 (0-32) U/L ALT 13 (0-33) U/L Alkaline Phosphata se 92 (35-105) IU/L Troponin T Baselin e (0-10) ng/L Troponin T 120 Min ge (0-10) ng/L Delta Troponin T (0-10) ABS# Total Protein 6.7 (6.6-8.7) g/dL Albumin 4.7 (3.5-5.2) g/dL Globulin 2.0 (1.3-4.6) g/dL 07/29/20 07/29/20 Range/Units 00:12 01:51 WBC (4.0-10.0) 10^3/ uL RBC (4.1-5.3) 10^6/u L Hgb (11.5-15.3) g/dL Hct (37.0-47.0) % MCV (81-99) fL MCH (28.0-34.0) pg MCHC (30.0-36.0) g/dL RDW (12.1-15.1) % Plt Count (130-400) 10^3/c mm MPV (7.4-10.4) fL Neut % (Auto) % Lymph % (Auto) % Lamar % (Auto) % Eos % (Auto) % Baso % (Auto) % Neut # (Auto) (1.8-7.7) 10^3/u L Lymph # (Auto) (0.8-4.8) 10^3/u L Lamar # (Auto) (0.2-0.9) 10^3/u L Eos # (Auto) (0.0-0.8) 10^3/u L Baso # (Auto) (0.0-0.1) 10^3/u L Nucleated RBC % (a uto) % Nucleated RBCs # /100WBC D-Dimer (0-0.59) ug/mIFE U Sodium (136-145) mmol/L Potassium (3.5-5.1) mmol/L Chloride (98-107) mmol/L Carbon Dioxide (22-29) mmol/L Anion Gap (5-19) BUN (6-20) mg/dL Creatinine (0.5-0.9) mg/dL GFR Calculation (90-130) mL/min Glucose (65-115) mg/dL Calculated Osmolal ity (285-295) mOsm/k g Calcium (8.5-10.5) mg/dL Total Bilirubin (0.15-1.2) mg/dL AST (0-32) U/L ALT (0-33) U/L Alkaline Phosphata se (35-105) IU/L Troponin T Baselin e 15 H (0-10) ng/L Troponin T 120 Min ge 11.15 H (0-10) ng/L Delta Troponin T -3.85 L (0-10) ABS# Total Protein (6.6-8.7) g/dL Albumin (3.5-5.2) g/dL Globulin (1.3-4.6) g/dL Imaging Data^: CXR: Attestation: I personally reviewed and interpreted this imaging study as follows: My impression: no acute abnormality EKG Data^: EKG 1: Attestation: I personally reviewed and interpreted this EKG as follows: EKG interpretation date: 07/28/20 EKG interpretation time: 23:58 Interpretation: nsr hr [address] or t wave abnormalities qrs 84 qtc 399 EKG 2: Attestation: I personally reviewed and interpreted this EKG as follows: EKG interpretation date: 07/29/20 EKG interpretation time: 02:07 Interpretation: nsr hr [address] or t wave abnormalities qrs 81 qtc 431 Discharge Plan Discharge Patient Disposition: Home Clinical Impression: Weakness Anemia Qualifiers: Anemia type: unspecified type Qualified Code(s): D64.9 - Anemia, unspecified Condition: Stable Prescriptions: No Action cyclobenzaprine 10 mg tablet 10 mg PO TID@11,15,23 RF: 0 celecoxib [Celebrex] 200 mg capsule 200 mg PO DAILY@2300 RF: 0 ondansetron HCl [Zofran] 4 mg tablet 4 mg PO Q6H PRN (Reason: N/V) RF: 0 methocarbamol [Robaxin-750] 750 mg tablet 750 mg PO TID PRN (Reason: MUSCLE SPASMS) RF: 0 hydroxyzine HCl 50 mg tablet 50 mg PO TID PRN (Reason: UNKNOWN) RF: 0 rizatriptan [Maxalt] 10 mg tablet 10 mg PO DAILY PRN (Reason: migraine headache) RF: 0 melatonin 10 mg Tablet Extended Release 20 - 30 mg PO BEDTIME@2300 RF: 0 Iron (ferrous sulfate) 325 mg (65 mg iron) tablet 325 mg PO BID@1100,2300 RF: 0 multivitamin 1 tab PO DAILY@11 RF: 0 Discharge Orders: Discharge ED (Routine); Ordered 07/29/20 Ordered By: Lyudmila Staples Discharge Diet: Advance as tolerated Discharge Activity: Resume usual activity Patient Instructions: Anemia (ED) Coding Level of Care Code ED Heading And Priming Tool Setter for Chg Fwd Exam Comprehensive
[2020-07-29 00:18] LABS: Basophils # 0.1 10^3/uL (0.0-0.1); Basophils % 1.9 %; Eosinophils % 0.5 %; Hematocrit 28.9 % (37.0-47.0); Hemoglobin 7.7 g/dL (11.5-15.3); Lymphocytes # 1.8 10^3/uL (0.8-4.8); Lymphocytes % 47.2 %; Mean Corpuscular HGB Conc 26.6 g/dL (30.0-36.0); Mean Corpuscular Hemoglobin 16.8 pg (28.0-34.0); Mean Corpuscular Volume 63.2 fL (81-99); Mean Platelet Volume 9.4 fL (7.4-10.4); Monocytes # 0.3 10^3/uL (0.2-0.9); Monocytes % 8.8 %; Neutrophils # 1.56 10^3/uL (1.8-7.7); Neutrophils % 41.6 %; Nucleated Red Blood Cells % 0 %; Platelet Count 318 10^3/cmm (130-400); Red Blood Count 4.57 10^6/uL (4.1-5.3); Red Cell Distribution Width 19.7 % (12.1-15.1); White Blood Count 3.8 10^3/uL (4.0-10.0)
[2020-07-29 00:31] LABS: D Dimer 0.42 ug/mIFEU (0-0.59)
[2020-07-29 00:34] LABS: Troponin(5th) Baseline 15 ng/L (0-10)
[2020-07-29 00:35] LABS: Alanine Aminotransferase 13 U/L (0-33); Albumin Level 4.7 g/dL (3.5-5.2); Alkaline Phosphatase 92 IU/L (35-105); Anion Gap 15.7 (5-19); Aspartate Amino Transferase 27 U/L (0-32); Blood Urea Nitrogen 10 mg/dL (6-20); Calcium 9.2 mg/dL (8.5-10.5); Carbon Dioxide 25 mmol/L (22-29); Chloride 101 mmol/L (98-107); Creatinine Clr Calc Pharmacy 117.0544; Glomerular Filtration Rate 110.7 mL/min (90-130); Glucose 82 mg/dL (65-115); Osmolality Calculated 284 mOsm/kg (285-295); Potassium 3.7 mmol/L (3.5-5.1); Sodium 138 mmol/L (136-145); Total Bilirubin 0.2 mg/dL (0.15-1.2); Total Protein 6.7 g/dL (6.6-8.7)
[2020-07-29 01:25] VITALS: BP 147/106; PULSE 78; RESP 16; O2SAT 100
--- NOTE | 2020-07-29 01:46 | ECG_ITS ---
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
[2020-07-29 02:13] LABS: Troponin 5 2HR 11.15 ng/L (0-10)
--- NOTE | 2020-07-29 02:14 | XRR_ITS ---
PROCEDURE INFORMATION: Exam: XR Chest Exam date and time: 07/29/2020 2:14 AM Age: 40 years old Clinical indication: Pain; Chest pressure; Additional info: Cp TECHNIQUE: Imaging protocol: XR of the chest. Views: 1 view. COMPARISON: None available FINDINGS: No focal pulmonary consolidation is demonstrated on this single frontal image. No significant obscuration of the lateral costophrenic angles is demonstrated. No significant vascular congestion is demonstrated. Visualized cardiac silhouette size appears within normal limits. XR/XR chest 1V portable [id number] IMPRESSION: No acute pulmonary process is demonstrated.
[2020-07-29 02:17] LABS: Troponin 5 2HR Delta -3.85 ABS# (0-10)
[2020-07-29 02:45] VITALS: BP 131/71; PULSE 96; RESP 16; O2SAT 100
--- NOTE | 2020-07-29 13:17 | PC.SOCIAL ---
After a few attempts was able to reach patient. She is willing to see Dr Perla. This appointment was scheduled for August 15, 2020 at 9am and arrival time of 8:45am. Advised to bring ins card and current list of medications. Patient verbalized understanding did indicate this is early. Provided phone number to call if she needs to reschedule. She asked location and this was provided as well. NO further questions.
--- NOTE | 2020-09-04 06:55 | DCPLANNER ---
Patient had an appointment scheduled for 08.15.[address] Perla at [facility] to establish care - patient did not attend appointment.
== END 2020-07-29 02:45 | disposition home or self-care (01) ==
PROVIDERS: Emergency Provider Emergency Medicine
DX: R53.1 Weakness (principal); D64.9 Anemia, unspecified; Z87.891 Personal history of nicotine dependence
CPT/HCPCS: 71045; 80053; 84484; 85025; 85378; 93005; 99283

== ENCOUNTER 2021-10-22 15:23 | Emergency (ER) | payer MEDICARE, MEDICAID, SELFPAY ==
[2021-10-22] VITALS (14 sets, daily range): BP systolic 101–137; BP diastolic 61–102; PULSE 74–100; RESP 14–20; TEMP 36.6–36.9; O2SAT 91–100; BMI 29.2
--- NOTE | 2021-10-22 16:00 | ED_ITS ---
HPI - Recheck/Abnormal Lab/Rx General: Chief Complaint: Recheck/Abnormal Lab/Rx Stated Complaint: abnormal labs Time Seen by Provider: 10/22/21 15:51 PFSH ED PFSH: Medical History (Updated 09/25/20 @ 14:43 by Navid Amin DO) Cirrhosis of liver Surgical History (Updated 09/25/20 @ 14:41 by Navid Amin DO) Gastric bypass status for obesity Family History Grandmother Stroke Social History (Updated 09/25/20 @ 13:49 by Mitchell De La Rosa LPN) Smoking and tobacco status: current every day smoker Alcohol intake: former Female Reproductive History: Date of last menstrual period: 09/27/21 Course Vital Signs: Vital signs: Vital Signs Temperature 98.2 F 10/22/21 15:29 Pulse Rate 100 10/22/21 15:29 Respiratory Rate 20 H 10/22/21 15:29 Blood Pressure 125/69 10/22/21 15:29 Pulse Oximetry 99 10/22/21 15:29 Oxygen Delivery Me thod 10/22/21 15:29 Discharge Plan Discharge Condition: Stable Prescriptions: No Action cyclobenzaprine 10 mg tablet 10 mg PO TID@11,,23 celecoxib [Celebrex] 200 mg capsule 200 mg PO DAILY@2300 ondansetron HCl [Zofran] 4 mg tablet 4 mg PO Q6H PRN (Reason: N/V) methocarbamol [Robaxin-750] 750 mg tablet 750 mg PO TID PRN (Reason: MUSCLE SPASMS) hydroxyzine HCl 50 mg tablet 50 mg PO TID PRN (Reason: UNKNOWN) rizatriptan [Maxalt] 10 mg tablet 10 mg PO DAILY PRN (Reason: migraine headache) melatonin 10 mg Tablet Extended Release 20 - 30 mg PO BEDTIME@2300 Iron (ferrous sulfate) 325 mg (65 mg iron) tablet 325 mg PO BID@1100,2300 multivitamin 1 tab PO DAILY@11 Referrals: Navid Amin DO [Primary Care Provider] - Coding Level of Care Code ED Secret Code Expert for Sheyla Villalba
--- NOTE | 2021-10-22 16:00 | XR_ITS ---
WS: [id number] Portable AP upright chest, 10/22/2021 Clinical Data: chest pain Comparison: Portable chest, 07/29/2020. Findings: No nodules, masses or effusions are seen. The heart is normal. The pulmonary vascularity is not increased. No pneumonia or pneumothorax is seen. XR/XR chest 1V portable [id number] Impression: Negative chest.
--- NOTE | 2021-10-22 16:03 | ECG_ITS ---
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 Measurements Intervals [place] Rate: 76 P: 62 NM: 151 QRS: 23 QRSD: 80 T: 63 QT: 372 QTc: 419 Interpretive Statements SINUS RHYTHM WITH SINUS ARRHYTHMIA Compared to ECG 07/29/2020 02:07:20 No significant changes Electronically Signed On 10-23-2021 0:18:18 CDT by Calderon Jansen M.D. [id number]
--- NOTE | 2021-10-22 16:08 | W.ED.GENADLT ---
HPI - General Adult General: Chief complaint: Recheck/Abnormal Lab/Rx Stated complaint: abnormal labs Time Seen by Provider: 10/22/21 15:51 History of Present Illness: Patient is a 41-year-old female with history of anemia presenting to the emergency room with complaints of low hemoglobin and chest pain. Patient tells me that on Tuesday she began having neck pain and headache and a cough. Since Tuesday, patient says that she has been having on and off chest pain for the last year but has been worsening after the cough. Patient has a first-degree family member the father who had heart attack at the age of 53. Patient denies any exertional chest pain or dyspnea. Patient denies any productive cough. Patient does not know why her hemoglobin is low but has had it in the past. Patient had routine blood work that was done today at Dr. Biggs's office was told to come to the emergency room. Onset: chest pain since Tuesday, cough since Tuesday Duration:ongoing Location:home Severity:moderate Associated symptoms: Reports chest pain; Deny dyspnea, nausea, rash, palpitations or vomiting Review of Systems Const: Denies: fever(s) or chills Eyes: Denies: change in vision ENMT: Denies: mouth pain Card: Reports: chest pain; Denies: palpitations Resp: Reports: non-productive cough; Denies: dyspnea GI: Denies: abdominal pain, nausea, vomiting or diarrhea : Denies: dysuria Musc: Reports: neck pain (R sided neck pain); Denies: extremity pain Skin/Breast: Denies: rash or new lesions Neuro: Denies: weakness in extremities Psych: Reports: other (Normal mood) Khari/Lymph: Denies: easy bruising PFSH ED PFSH: Medical History Cirrhosis of liver Surgical History Gastric bypass status for obesity Family History Grandmother Stroke Social History Smoking and tobacco status: current every day smoker Alcohol intake: former Female Reproductive History: Date of last menstrual period: 09/27/21 Physical Exam Const: COMMON NORMALS: alert HENMT: COMMON NORMALS: atraumatic HEAD & SCALP: atraumatic MOUTH: moist mucous membranes not abnormal Eye: COMMON NORMALS: EOMs intact bilaterally and conjunctivae normal CONJUNCTIVA: Yes conjunctivae normal Neck/C-Spine: COMMON NORMALS: full ROM and supple Resp: COMMON NORMALS: normal respiratory effort and clear to auscultation bilaterally AUSCULTATION: clear to auscultation bilaterally Cardio: COMMON NORMALS: regular rate RATE: regular rate GI: COMMON NORMALS: Soft to palpation and non-tender PALPATION: Yes Soft to palpation OTHER: No focal TTP. NO guarding rebound, guarding, rigidity. No CVA tenderness to percussion. Neg May/Neg McBurney's point tenderness, no suprabupic tenderness to palpation. RECTAL: Hemoccult negative brown stool, no melena/hematochezia Extremity: COMMON NORMALS: full ROM Neuro: SENSORIUM/ORIENTATION: Yes alert MOTOR EXAM: No Abnormal motor strength present and Other motor observations present (no focal motor deficits) Psych: COMMON NORMALS: speech normal SPEECH: Yes normal speech MOOD & AFFECT: Yes euthymic mood Course Vital Signs: Vital signs: Vital Signs Temperature 98.4 F 10/22/21 20:57 Pulse Rate 83 10/22/21 20:57 Respiratory Rate 16 10/22/21 20:57 Blood Pressure 128/81 10/22/21 20:57 Pulse Oximetry 100 10/22/21 20:57 Oxygen Delivery Me thod 10/22/21 18:30 MDM - General Adult Medical Decision Making Patient is a 41-year-old female with history of anemia presenting to the emergency room with complaints of low hemoglobin and chest pain. Patient is noted have a hemoglobin 6.4 today. Patient received 2 units of blood for transfusion. Rectal exam negative for for any melena or hematochezia. Patient is Hemoccult negative. Patient has documented history of cirrhosis. However on ultrasound, patient does not have cirrhotic-looking liver. At the present time, doubt that this is likely varices the patient has no clinical complaints of melena or hematemesis. I have given patient close follow-up primary care provider for further evaluation of anemia. At the present time, patient has a heart score less than 3 today and I do not suspect chest pain is likely related to ACS or unstable angina patient is EKG is unremarkable and has not had any troponin elevation. Patient received 2 units of blood in the ER. I have given patient follow up with our skilled nursing case manager to be seen by our outpatient by Dr. Abarca for EGD. Patient aware of a call from our skilled nursing case manager to schedule for appointment(s) and verbalizes understanding of the importance of following up. I have given patient follow up with our skilled nursing case manager to be seen by our outpatient by Cardiology for outpatient evaluation of chest pain. Patient aware of a call from our skilled nursing case manager to schedule for appointment(s) and verbalizes understanding of the importance of following up. Rx iron sulfate for anemia Disposition: Discharge. Patient counseled regarding diagnostic impression, treatment plan. Patient given ED strict return precautions to return for continuation, worsening, or development of new symptoms. Instructed to f/u w/ PCP regarding symptoms today. Patient verbalized understanding. Lab Data : 10/22/21 17:40 10/22/21 17:40 Radiology Impressions Chest X-Ray 10/22/21 16:00 Impression: Negative chest. Gallbladder Ultrasound 10/22/21 19:06 IMPRESSION: Gallbladder is absent, negative for abnormality. Laboratory Results WBC 3.0 10^3/uL (4.0-10.0) L 10/22/21 17:40 RBC 4.20 10^6/uL (4.1-5.3) 10/22/21 17:40 Hgb 6.4 g/dL (11.5-15.3) L* 10/22/21 17:40 Hct 25.9 % (37.0-47.0) L 10/22/21 17:40 MCV 61.7 fl (81-99) L 10/22/21 17:40 MCH 15.2 pg (28.0-34.0) L 10/22/21 17:40 MCHC 24.7 g/dL (30.0-36.0) L 10/22/21 17:40 RDW 21.2 % (12.1-15.1) H 10/22/21 17:40 Plt Count 458 10^3/cmm (130-400) H 10/22/21 17:40 MPV 9.8 fL (7.4-10.4) 10/22/21 17:40 Neut % (Auto) 46.1 % 10/22/21 17:40 Lymph % (Auto) 42.7 % 10/22/21 17:40 Door % (Auto) 9.5 % 10/22/21 17:40 Eos % (Auto) 0.7 % 10/22/21 17:40 Baso % (Auto) 1.0 % 10/22/21 17:40 Neut # (Auto) 1.36 10^3/uL (1.8-7.7) L 10/22/21 17:40 Lymph # (Auto) 1.3 10^3/uL (0.8-4.8) 10/22/21 17:40 Door # (Auto) 0.3 10^3/uL (0.2-0.9) 10/22/21 17:40 Eos # (Auto) 0.0 10^3/uL (0.0-0.8) 10/22/21 17:40 Baso # (Auto) 0.0 10^3/uL (0.0-0.1) 10/22/21 17:40 Nucleated RBC % (auto) 0 % 10/22/21 17:40 Nucleated RBCs # 0.0 /100WBC 10/22/21 17:40 Sodium 139 mmol/L (136-145) 10/22/21 17:40 Potassium 4.2 mmol/L (3.5-5.1) 10/22/21 17:40 Chloride 102 mmol/L (98-107) 10/22/21 17:40 Carbon Dioxide 27 mmol/L (22-29) 10/22/21 17:40 Anion Gap 14.2 (5-19) 10/22/21 17:40 BUN 9 mg/dL (6-20) 10/22/21 17:40 Creatinine 0.4 mg/dL (0.5-0.9) L 10/22/21 17:40 GFR Calculation 175.9 mL/min (90-130) H 10/22/21 17:40 Glucose 87 mg/dL (65-115) 10/22/21 17:40 Calculated Osmolality 286 mOsm/kg (285-295) 10/22/21 17:40 Calcium 8.4 mg/dL (8.5-10.5) L 10/22/21 17:40 Total Bilirubin 0.2 mg/dL (0.15-1.2) 10/22/21 17:40 AST 26 U/L (0-32) 10/22/21 17:40 ALT 10 U/L (0-33) 10/22/21 17:40 Alkaline Phosphatase 81 U/L (35-105) 10/22/21 17:40 Troponin T Baseline 9 ng/L (0-10) 10/22/21 17:40 Troponin T 120 Minute 6.80 ng/L (0-10) 10/22/21 19:50 Delta Troponin T -2.2 ABS# (0-10) L 10/22/21 19:50 Total Protein 6.6 g/dL (6.6-8.7) 10/22/21 17:40 Albumin 3.9 g/dL (3.5-5.2) 10/22/21 17:40 Globulin 2.7 g/dL (1.3-4.6) 10/22/21 17:40 HCG, Qual Negative (Negative) 10/22/21 19:18 Blood Type A Positive 10/22/21 18:20 Rho(D) Type Positive 10/22/21 18:20 Antibody Screen Negative 10/22/21 18:20 Crossmatch See Detail 10/22/21 18:20 Imaging Data Other Imaging: Radiologist's impression: Close Chest X-Ray (Signed) Micheline Solorzano - 10/22/21 Launch?Image [address] [address] XRay Report Signed Patient: Candace Kohler Unit #: [id number] : 1980 Age/Sex: 41 / F ADM Date: 10/22/21 Loc: ER Room/Bed: Attending Dr: Ordering Provider/Ordering MD: Lindsey Senior MD Date of Service: 10/22/21 Procedure(s): XR chest 1V portable [id number] Accession Number(s): [id number] Report Number: [id number] WS: [id number] Portable AP upright chest, 10/22/2021 Clinical Data: chest pain Comparison: Portable chest, 07/29/2020. Findings: No nodules, masses or effusions are seen. The heart is normal. The pulmonary vascularity is not increased. No pneumonia or pneumothorax is seen. XR/XR chest 1V portable [id number] Impression: Negative chest. ? Dictated By: Micheline Solorzano MD Signed By: Micheline Solorzano MD Signed Date/Time: 10/22/211615 DD/ [place] [address] XRay Report Signed Patient: Candace Kohler Unit #: [id number] : 1980 Age/Sex: 41 / F ADM Date: 10/22/21 Loc: ER Room/Bed: Attending Dr: Ordering Provider/Ordering MD: Lindsey Senior MD Date of Service: 10/22/21 Procedure(s): XR chest 1V portable [id number] Accession Number(s): [id number] Report Number: [id number] WS: [id number] Portable AP upright chest, 10/22/2021 Clinical Data: chest pain Comparison: Portable chest, 07/29/2020. Findings: No nodules, masses or effusions are seen. The heart is normal. The pulmonary vascularity is not increased. No pneumonia or pneumothorax is seen. XR/XR chest 1V portable [id number] Impression: Negative chest. ? Dictated By: Micheline Solorzano MD Signed By: Micheline Solorzano MD Signed Date/Time: 10/22/211615 DD/ [address] [place] [address] Ultrasound Report Signed Patient: Candace Kohler Unit #: [id number] : 1980 Age/Sex: 41 / F ADM Date: 10/22/21 Loc: ER Room/Bed: Attending Dr: Ordering Provider/Ordering MD: Lindsey Senior MD Date of Service: 10/22/21 Procedure(s): US gall bladder 98391 Accession Number(s): [id number] Report Number: [id number] PROCEDURE INFORMATION: Exam: US Abdomen, Limited; Right Upper Quadrant Exam date and time: 10/22/2021 7:39 PM Age: 41 years old Clinical indication: Other: Patient complains of chest pain and low hemoglobin; Other: Non exertional chest pain x 4 days; Prior surgery; Surgery date: 6+ months; Surgery type: Lapchole 2000. Gastric bypass 2003; Patient HX: Current lfts are normal. Tbili normal = 0.2. Ast normal = 26. Alt normal = 10. Alkphos normal = 81; Additional info: Eval for presence of liver cirrhosis TECHNIQUE: Imaging protocol: Real time ultrasound of the abdomen with image documentation. Limited exam focused on the right upper quadrant. COMPARISON: No relevant prior studies available. FINDINGS: Liver: Normal. No masses. Gallbladder: Gallbladder is absent. Biliary ducts: Normal. No stones. No dilation. Pancreas: Visualized pancreas is unremarkable. Right kidney: Normal. No mass. No hydronephrosis. US/ gall bladder [id number] IMPRESSION: Gallbladder is absent, negative for abnormality. ? Dictated By: Kevin Montes MD Signed By: Kevin Montes MD Signed Date/Time: 10/22/212043 DD/ 38 Discharge Plan Discharge Patient Disposition: Home Clinical Impression: Anemia Condition: Stable Prescriptions: New ferrous sulfate 325 mg (65 mg iron) tablet 325 mg PO DAILY 20 Days Qty: 20 0RF No Action cyclobenzaprine 10 mg tablet 10 mg PO TID@,15, hydroxyzine HCl 50 mg tablet 50 mg PO TID PRN (Reason: UNKNOWN) rizatriptan [Maxalt] 10 mg tablet 10 mg PO DAILY PRN (Reason: migraine headache) ondansetron HCl 4 mg tablet 4 mg PO Q6H PRN (Reason: Nausea And Vomiting) pantoprazole 40 mg tablet,delayed release (DR/EC) 40 mg PO DAILY Advil 200 mg Tablet 200 mg PO Q6H PRN (Reason: Pain) Discharge Orders: Discharge ED (Routine); Ordered 10/22/21 Ordered By: Lindsey Senior Referrals: Navid Amin DO [Primary Care Provider] - Discharge Diet: Advance as tolerated Discharge Activity: Increase activity as tolerated Patient Instructions: Anemia (ED) Activity Restrictions/Additional Instructions: Come back if you have any new or concerning issues. Our skilled nursing case manager will have you follow-up with Dr. Abarca in the next few days for an EGD. You would be expected to have a phone call with our skilled nursing case manager who will put you on the schedule. You can expect a call from us in the next 2-3 days. If you don't hear from us, call us back in the emergency room at [phone]. Our skilled nursing case manager will have you follow-up with our Cardiologists in the next few days for chest pain. You would be expected to have a phone call with our skilled nursing case manager who will put you on the schedule. You can expect a call from us in the next 2-3 days. If you don't hear from us, call us back in the emergency room at [phone]. Coding Level of Care Code ED Storeroom Supervisor for Sheyla Fwd Exam Comprehensive
[2021-10-22 18:03] LABS: Eosinophils % 0.7 %; Hematocrit 25.9 % (37.0-47.0); Lymphocytes # 1.3 10^3/uL (0.8-4.8); Lymphocytes % 42.7 %; Mean Corpuscular HGB Conc 24.7 g/dL (30.0-36.0); Mean Corpuscular Hemoglobin 15.2 pg (28.0-34.0); Mean Corpuscular Volume 61.7 fl (81-99); Mean Platelet Volume 9.8 fL (7.4-10.4); Monocytes # 0.3 10^3/uL (0.2-0.9); Monocytes % 9.5 %; Neutrophils # 1.36 10^3/uL (1.8-7.7); Neutrophils % 46.1 %; Nucleated Red Blood Cells % 0 %; Platelet Count 458 10^3/cmm (130-400); Red Cell Distribution Width 21.2 % (12.1-15.1)
--- NOTE | 2021-10-22 18:11 | ECG_ITS ---
[facility] Test Date: 2021-10-22 Pat Name: Candace Kohler Department: Room: Gender: Female Compliance Associate: : 1980 Requested By: Lindsey Senior Order Number: [id number] Avila MD: Calderon Jansen M.D. Measurements Intervals [place] Rate: 75 P: 64 LA: 145 QRS: 12 QRSD: 80 T: 52 QT: 380 QTc: 426 Interpretive Statements SINUS RHYTHM WITH MARKED SINUS ARRHYTHMIA Compared to ECG 10/22/2021 16:35:35 No significant changes Electronically Signed On 10-23-2021 0:19:43 CDT by Calderon Jansen M.D. [email or web address]
[2021-10-22 18:31] LABS: Hemoglobin 6.4 g/dL (11.5-15.3)
[2021-10-22 18:32] LABS: Troponin(5th) Baseline 9 ng/L (0-10)
[2021-10-22 18:34] LABS: Alanine Aminotransferase 10 U/L (0-33); Albumin Level 3.9 g/dL (3.5-5.2); Alkaline Phosphatase 81 U/L (35-105); Aspartate Amino Transferase 26 U/L (0-32); Blood Urea Nitrogen 9 mg/dL (6-20); Calcium 8.4 mg/dL (8.5-10.5); Carbon Dioxide 27 mmol/L (22-29); Chloride 102 mmol/L (98-107); Globulin 2.7 g/dL (1.3-4.6); Glomerular Filtration Rate 175.9 mL/min (90-130); Glucose 87 mg/dL (65-115); Osmolality Calculated 286 mOsm/kg (285-295); Sodium 139 mmol/L (136-145); Total Bilirubin 0.2 mg/dL (0.15-1.2); Total Protein 6.6 g/dL (6.6-8.7)
[2021-10-22 18:36] LABS: Anion Gap 14.2 (5-19); Potassium 4.2 mmol/L (3.5-5.1)
--- NOTE | 2021-10-22 19:06 | USR_ITS ---
PROCEDURE INFORMATION: Exam: US Abdomen, Limited; Right Upper Quadrant Exam date and time: 10/22/2021 7:39 PM Age: 41 years old Clinical indication: Other: Patient complains of chest pain and low hemoglobin; Other: Non exertional chest pain x 4 days; Prior surgery; Surgery date: 6+ months; Surgery type: Lapchole 2000. Gastric bypass 2003; Patient HX: Current lfts are normal. Tbili normal = 0.2. Ast normal = 26. Alt normal = 10. Alkphos normal = 81; Additional info: Eval for presence of liver cirrhosis TECHNIQUE: Imaging protocol: Real time ultrasound of the abdomen with image documentation. Limited exam focused on the right upper quadrant. COMPARISON: No relevant prior studies available. FINDINGS: Liver: Normal. No masses. Gallbladder: Gallbladder is absent. Biliary ducts: Normal. No stones. No dilation. Pancreas: Visualized pancreas is unremarkable. Right kidney: Normal. No mass. No hydronephrosis. US/US gall bladder [id number] IMPRESSION: Gallbladder is absent, negative for abnormality.
[2021-10-22 19:35] LABS: HCG, Serum Qual Negative (Negative)
[2021-10-22] MEDS: sodium chloride 0.9% 100 mL Bag 50 ML IV (20:22)
--- NOTE | 2021-10-22 20:34 | PC.NURSE ---
RBC unit # [id number] verified with Jb Munroe RN - charge @ 2033 prior to transfusion.
[2021-10-22 20:53] LABS: Troponin 5 2HR Delta -2.2 ABS# (0-10)
[2021-10-22 21:42] LABS: SARS Covid-2 Antigen Positive (Negative)
--- NOTE | 2021-10-22 22:32 | PC.NURSE ---
@ 2233 Verified unit# [id number] with playground supervisor Yolande heart prior to transfusion.
[2021-10-23] VITALS: BP 120/69; PULSE 79; RESP 16; O2SAT 100
[2021-10-23 01:47] VITALS: BP 120/69; PULSE 79; RESP 16; O2SAT 100
--- NOTE | 2021-10-23 11:15 | DCPLANNER ---
Addendum entered by Jasmina Olvera 01/27/22 11:28: Patient had a follow up appointment scheduled with Internal Medicine - patient did attend appointment. Addendum entered by Jasmina Olvera 10/27/21 08:04: Patient has a follow up appointment scheduled for Tuesday, December 02, 2021 at 9:[address] Carter at Internal Medicine. Clinic will call patient with appointment information. Original Note: process control manager had message to schedule a follow up appointment for patient with Dr. Carter in Internal Medicine. process control manager sent patients information to the front office staff at Internal Medicine. Patients information will be printed and reviewed. Clinic will call patient with appointment information.
--- NOTE | 2021-10-23 11:17 | DCPLANNER ---
Addendum entered by Jasmina Olvera 01/19/22 13:35: Patient had an appointment at [facility] - patient did attend appointment Addendum entered by Jasmina Olvera 10/26/21 14:50: Patient has a follow up appointment scheduled for Wednesday, January 05, 2022 at 11:[address] Jc at [facility]. Clinic will call patient with appointment information. Original Note: group sales manager had message to schedule a follow up appointment for patient with cardiology. group sales manager sent patients information to the front office staff at [facility]. Patients information will be printed and reviewed. Clinic will call patient with appointment information.
== END 2021-10-23 01:53 | disposition home or self-care (01) ==
PROVIDERS: Emergency Medicine; Emergency Provider Emergency Medicine; PCP Family Medicine
DX: D64.9 Anemia, unspecified (principal)
CPT/HCPCS: 36430; 71045; 76705; 80053; 84484; 84703; 85025; 86850; 86900; 86920; 87426; 93005; 99285; P9016

== ENCOUNTER → 2021-12-07 18:15 | Outpatient (BNVA) | payer MEDICARE, MEDICAID, SELFPAY | PROVIDERS: PCP Family Medicine; Visit Provider Internal Medicine | DX: D50.9 Iron deficiency anemia, unspecified (principal); D64.9 Anemia, unspecified | CPT/HCPCS: 80053; 80503; 82607; 82746; 83550; 84443; 85025; 85045 ==

== ENCOUNTER → 2021-12-28 11:51 | Day surgery (SDC) | payer MEDICARE, MEDICAID, SELFPAY ==
[2021-12-28 12:10] VITALS: BP 118/74; PULSE 100; RESP 18; TEMP 36.1; O2SAT 100
[2021-12-28] MEDS: ferric carboxy (IVPB) 750 MG in sodium chloride 0.9% (100 ml) 100 ML 345 MG IV (12:27)
== END ==
PROVIDERS: PCP Physician Assistant; Visit Provider Internal Medicine
DX: D50.9 Iron deficiency anemia, unspecified (principal); K90.9 Intestinal malabsorption, unspecified
CPT/HCPCS: 96365; 96372; J1439; J3420

== ENCOUNTER → 2022-01-04 11:42 | Day surgery (SDC) | payer MEDICARE, MEDICAID, SELFPAY ==
[2022-01-04] MEDS: ferric carboxy (IVPB) 750 MG in sodium chloride 0.9% (100 ml) 100 ML 345 MG IV (12:01)
[2022-01-04 12:04] VITALS: BP 129/73; PULSE 90; RESP 18; TEMP 37.3; O2SAT 100
== END ==
PROVIDERS: PCP Physician Assistant; Visit Provider Internal Medicine
DX: K90.9 Intestinal malabsorption, unspecified (principal)
CPT/HCPCS: 96365; J1439

== ENCOUNTER 2022-01-04 13:00 | Oncology outpatient (recurring) (ONCR) | payer MEDICARE, MEDICAID, SELFPAY ==
[2021-12-21 14:45] LABS: Basophils # 0.1 10^3/uL (0.0-0.1); Eosinophils # 0.1 10^3/uL (0.0-0.8); Eosinophils % 1.4 %; Hematocrit 30.3 % (37.0-47.0); Lymphocytes # 1.7 10^3/uL (0.8-4.8); Lymphocytes % 33.7 %; Mean Corpuscular HGB Conc 26.4 g/dL (30.0-36.0); Mean Corpuscular Hemoglobin 17.7 pg (28.0-34.0); Mean Corpuscular Volume 67.2 fl (81-99); Mean Platelet Volume 9.2 fL (7.4-10.4); Monocytes # 0.5 10^3/uL (0.2-0.9); Monocytes % 10.7 %; Neutrophils # 2.63 10^3/uL (1.8-7.7); Nucleated Red Blood Cells % 0 %; Platelet Count 362 10^3/cmm (130-400); Red Blood Count 4.51 10^6/uL (4.1-5.3); Red Cell Distribution Width 22.2 % (12.1-15.1)
[2021-12-21] MEDS: cyanocobalamin 1,000 mcg/mL SDV 1000 MCG SUBCUT (16:36)
[2021-12-21 18:18] LABS: Ferritin 6 ng/mL (15-150); Iron 13 ug/dL (37-145); Percent Saturation 2.4 % (20-50); Total Iron Binding Capacity 541 mcg/dl; Unsaturated Iron Binding 528 ug/dL (112-347)
[2021-12-28] MEDS: cyanocobalamin 1,000 mcg/mL SDV 1000 MCG IM (13:48)
[2022-01-04] MEDS: cyanocobalamin 1,000 mcg/mL SDV 1000 MCG IM (13:03)
== END 2022-01-06 23:59 | disposition home or self-care (01) ==
PROVIDERS: PCP Family Medicine; Visit Provider Internal Medicine Hematology & Oncology
DX: E53.9 Vitamin B deficiency, unspecified (principal)
CPT/HCPCS: 36415; 82728; 83540; 83550; 85025; 96365; 96372; 99204; J1439; J3420

== ENCOUNTER → 2022-01-05 10:57 | Outpatient (BNVA) | payer MEDICARE, MEDICAID, SELFPAY | PROVIDERS: PCP Physician Assistant; Visit Provider Internal Medicine Cardiovascular Disease | DX: R07.89 Other chest pain (principal); R06.09 Other forms of dyspnea; D50.9 Iron deficiency anemia, unspecified; I10 Essential (primary) hypertension; F32.A Depression, unspecified; Z87.891 Personal history of nicotine dependence | CPT/HCPCS: 93005; 99205 ==

== ENCOUNTER → 2022-01-11 10:00 | Day surgery (SDC) | payer MEDICARE, MEDICAID, SELFPAY ==
[2022-01-11] MEDS: ferric carboxy (IVPB) 750 MG in sodium chloride 0.9% (100 ml) 100 ML 345 MG IV (10:35)
[2022-01-11 10:36] VITALS: BP 145/91; PULSE 95; RESP 18; TEMP 37; O2SAT 99
== END ==
PROVIDERS: PCP Physician Assistant; Visit Provider Internal Medicine
DX: K90.9 Intestinal malabsorption, unspecified (principal)
CPT/HCPCS: 96365; J1439

== ENCOUNTER 2022-01-29 10:08 | Outpatient (CLI) | payer MEDICARE, MEDICAID, SELFPAY ==
--- NOTE | 2022-01-29 10:15 | USCV_ITS ---
Candace Kohler Age: 41 Gender: F : 1980 Exam Date: 01/29/2022 10:27 Ordering Phys: Cornelio Jc MD ([email or web address]) Technologist: Evens Koo [place] [facility] [place]: Chest Pain BP: 145 / 87 HR: 91 Rhythm: Other Technical Quality: Adequate MEASUREMENTS (Male / Female) Normal Values 2D ECHO LV Diastolic Diameter PLAX 3.2 cm 4.2 - 5.9 / 3.9 - 5.3 cm LV Systolic Diameter PLAX 2.0 cm IVS Diastolic Thickness 1.1 cm 0.6 - 1.0 / 0.6 - 0.9 cm IVS Systolic Thickness 1.3 cm LVPW Diastolic Thickness 1.5 cm 0.6 - 1.0 / 0.6 - 0.9 cm LVPW Systolic Thickness 1.2 cm LVOT Diameter 1.9 cm LV Ejection Fraction 2D Teich 69.3 % LV Ejection Fraction MOD 2C 69.1 % LV Ejection Fraction 2C AL 69.0 % LA Diameter 3.5 cm Aorta at Sinotubular Diameter 2.2 cm IVC Diameter 1.6 cm M-MODE Aortic Annulus Diameter 3.7 cm LA Ao Ratio MM 1.1 MV E Point Septal Separation 0.5 cm DOPPLER AV Peak Velocity 127.0 cm/s LVOT Peak Velocity 87.0 cm/s AV Area Cont Eq vti 1.9 cm squared AV Area Cont Eq pk 1.9 cm squared MV Area PHT 5.0 cm squared Mitral E to A Ratio 0.8 MV E' Velocity 45.5 cm/s Mitral E to MV E' Ratio 4.7 Mitral E to LV E' Lateral Ratio 4.4 Mitral E to LV E' Septal Ratio 5.1 TR Peak Velocity 153.0 cm/s TR Peak Gradient 9.4 mmHg TV Peak E Velocity 57.0 cm/s Right Atrial Pressure 3.0 mmHg Pulmonary Artery Systolic Pressu 12.4 mmHg RV Acceleration Time 0.1 s FINDINGS Left Ventricle Normal left ventricular size and systolic function, EF 69 %. No regional wall motion abnormalities. Right Ventricle The right ventricle is normal in size and function. Right Atrium The right atrium is normal in size. Left Atrium The left atrium is normal in size. Mitral Valve Normal valve morphology with no gross abnormalities Aortic Valve Normal valve morphology with no gross abnormalities Tricuspid Valve Normal valve morphology with no gross abnormalities Pulmonic Valve No gross abnormalities noted Pericardium No pericardial effusion. Aorta Normal ascending aorta dimension. IVC Normal inferior vena cava. CONCLUSIONS Normal left ventricular size and systolic function, EF 69 %. No regional wall motion abnormalities. Normal cardiac chamber sizes. No significant stenotic or regurgitant lesions There is no pericardial effusion. There are no intracardiac masses. No previous study is available for comparison. Dr Cornelio Jc MD FACC (Electronically Signed) Final Date: 29 January 2022 13:15 S
== END 2022-01-29 10:09 | disposition home or self-care (01) ==
LOC: RAD 10:09
PROVIDERS: PCP Family Medicine Adult Medicine; Visit Provider Internal Medicine Cardiovascular Disease
DX: R06.09 Other forms of dyspnea (principal); R07.9 Chest pain, unspecified
CPT/HCPCS: 93306

== ENCOUNTER 2022-02-15 07:42 | Outpatient (CLI) | payer MEDICARE, MEDICAID, SELFPAY ==
[2022-02-15 08:24] VITALS: BMI 29.2
--- NOTE | 2022-02-15 08:26 | NMCV_ITS ---
NM hellen perf SPECT r/s* [id number] Candace Kohler Age: 41 Gender: F : 1980 Exam Date: 02/15/2022 09:19 Ordering Phys: Cornelio Jc MD ([email or web address]) Technologist: ANA MARIA Melendrez Exam Location: [facility] Indications: CHEST PAIN STRESS TEST Please see separate stress test report in [facility] for full findings IMAGE PROTOCOL Rest/Stress 1 Lexiscan Day Radiopharmaceutical Dose (mCi) Administration Site Administered by Rest: Tc-99m 10.6 IV ANA MARIA Iraheta Sestamibi Stress:Tc-99m 32.6 IV ANA MARIA Iraheta Sestamibi Rest: 15-Feb-2022 60 Discovery 630 Stress: 15-Feb-2022 30 Discovery 630 0.4mg Lexiscan. Images obtained in supine and prone position. SPECT RESULTS Technical Quality: Excellent Raw Data Analysis: Normal Image Corrections: No attenuation or motion correction applied Summed Stress Score: 0 Summed Rest Score: 0 Summed Difference Score: 0 PERFUSION FINDINGS Fairly uniform myocardial tracer uptake with no significant perfusion abnormalities. FUNCTIONAL RESULTS (calculated via Gated SPECT) Stress Image LV EF (%): 66 Stress EDV (mL):86 TID: 1.14 Stress ESV (mL):29 FUNCTIONAL FINDINGS: Segmental wall motion analysis revealing no gross wall motion abnormalities. IMPRESSIONS 1. Unremarkable Myocardial perfusion imaging 2. Normal LV ejection fraction of 66% 3. LV wall motion analysis revealing no gross wall motion normalities. 4. Normal LV volume Low probability for coronary ischemia, based on the above findings Dr Cornelio Jc MD FAC (Electronically Signed) Final Date: 15 February 2022 16:11 S
--- NOTE | 2022-02-15 08:26 | ECG_ITS ---
[facility] Test Date: 2022-02-15 Pat Name: Candace Kohler Department: Room: Gender: Female Assurance Manager Insurance: : 1980 Requested By: Cornelio Jc Order Number: [id number] Austin MD: Cornelio Jc M.D. Interpretive Statements NAME OF STUDY: LEXISCAN SESTAMIBI STRESS TEST INDICATION: Chest Pain, PROCEDURE: At the baseline, the EKG revealed normal sinus rhythm with a normal ST Ts. Probable progression. The baseline heart was 79 bpm with a blood pressue of 132/71 mm of Hg Lexiscan was infused over a period of 20 seconds. A total of 0.4 milligrams of Lexiscan was infused. The stress phase was continued for a total of 5 minutes. Heart rate at the end of the stress phase was 96 bpm with a blood pressure 125/61 mm of Hg. The EKG at the peak infusion revealed no significant changes. Sestamibi was injected 20 seconds after the Lexiscan infusion. Heart rate at the end of the recovery phase was 96 bpm with a blood pressure of 130/68 mm of Hg. CONCLUSION: 1. No significant EKG changes with the LexiScan infusion 2. No LexiScan induced chest pain or cardiac arrhythmia 3. Normal blood pressure and heart rate response 4. Sestamibi/sestamibi perfusion scan pending; see separate report. Electronically Signed On 02-19-2022 11:37:05 BUNDLES HANGER by Cornelio Jc M.D. [id number]
[2022-02-15] MEDS: regadenoson 0.4 Mg/5 ml Syringe IVP (09:54)
[2022-02-15 10:18] VITALS: BP 130/68; PULSE 96
== END 2022-02-15 07:43 | disposition home or self-care (01) ==
LOC: CDL 07:46
PROVIDERS: PCP Family Medicine Adult Medicine; Visit Provider Internal Medicine Cardiovascular Disease
DX: R07.9 Chest pain, unspecified (principal)
CPT/HCPCS: 36415; 78452; 93017; 96374; A9500; J2785

== ENCOUNTER → 2022-03-12 14:29 | Outpatient (BNVA) | payer MEDICARE, MEDICAID, SELFPAY | PROVIDERS: PCP Family Medicine Adult Medicine; Visit Provider Family Medicine Adult Medicine | DX: E53.8 Deficiency of other specified B group vitamins (principal); R10.9 Unspecified abdominal pain; D50.9 Iron deficiency anemia, unspecified; I10 Essential (primary) hypertension | CPT/HCPCS: 80048; 81000; 85025 ==

== ENCOUNTER → 2022-11-23 14:56 | Outpatient (BNVA) | payer MEDICARE, MEDICAID, SELFPAY | PROVIDERS: PCP Family Medicine Adult Medicine; Visit Provider Physician Assistant | DX: M47.816 Spondylosis without myelopathy or radiculopathy, lumbar region; M51.36 Other intervertebral disc degeneration, lumbar region | CPT/HCPCS: 72110; 99203 ==

== ENCOUNTER → 2022-11-30 15:28 | Outpatient (BNVA) | payer MEDICARE, MEDICAID, SELFPAY | PROVIDERS: PCP Family Medicine Adult Medicine; Visit Provider Physician Assistant | DX: M47.812 Spondylosis without myelopathy or radiculopathy, cervical region (principal); S13.4XXA Sprain of ligaments of cervical spine, initial encounter; X58.XXXA Exposure to other specified factors, initial encounter | CPT/HCPCS: 72040; 99203 ==

== ENCOUNTER 2023-01-11 14:24 | Outpatient (CLI) | payer MEDICARE, MEDICAID, SELFPAY ==
--- NOTE | 2023-01-11 14:30 | MR_ITS ---
WS: [id number] MRI CERVICAL SPINE NONCONTRAST TECHNIQUE: Sagittal T1, T2 and STIR imaging. Axial T2, gradient, and fiesta imaging. CLINICAL INFORMATION: cervical pain COMPARISON: MRI 05/21/2019 FINDINGS: Straightening of the normal cervical lordosis. Cord signal is normal. No high-grade central canal sorin rowing. C2-C3: Normal. C3-C4: Mild facet arthropathy. Spinal canal and foramen are patent. C4-C5: Mild disc osteophytic ridging. Mild LEFT greater than RIGHT bony foraminal narrowing. Mild fac et arthropathy. C5-C6: Disc osteophyte complex eccentric to the RIGHT. Mild to moderate RIGHT and mild LEFT bony fora renee narrowing. Mild facet arthropathy. C6-C7: Mild disc osteophytic ridging. Mild facet arthropathy. Mild RIGHT foraminal narrowing.. C7-T1: No significant disc bulging. Spinal canal and foramen are patent. Visualized brain stem structures: Normal. Prevertebral soft tissues: Normal. IMPRESSION: 1. Straightening normal cervical lordosis. No high-grade central canal stenosis. Cord signal is norm al. 2. Osteophytic ridging at C5-6 with mild to moderate RIGHT foraminal narrowing unchanged. 3. Mild RIGHT C6-7 foraminal narrowing unchanged. 4. Overall no significant changes compared to previous.
== END 2023-01-11 14:25 | disposition home or self-care (01) ==
LOC: RAD 14:24
PROVIDERS: PCP Family Medicine Adult Medicine; Visit Provider Physician Assistant
DX: M48.02 Spinal stenosis, cervical region (principal); M25.78 Osteophyte, vertebrae
CPT/HCPCS: 72141

== ENCOUNTER → 2023-02-08 09:55 | Outpatient (BNVA) | payer MEDICARE, MEDICAID, SELFPAY | PROVIDERS: PCP Family Medicine Adult Medicine; Visit Provider Specialist | DX: G37.9 Demyelinating disease of central nervous system, unspecified (principal); G43.019 Migraine without aura, intractable, without status migrainosus; G60.3 Idiopathic progressive neuropathy; M50.90 Cervical disc disorder, unspecified, unspecified cervical region; G96.9 Disorder of central nervous system, unspecified; G25.5 Other chorea; M47.812 Spondylosis without myelopathy or radiculopathy, cervical region | CPT/HCPCS: 99205 ==

== ENCOUNTER 2023-03-15 15:09 | Outpatient (CLI) | payer MEDICARE, MEDICAID, SELFPAY ==
--- NOTE | 2023-03-15 15:15 | MR_ITS ---
WS: [id number] MRI BRAIN WITH AND WITHOUT CONTRAST HISTORY: M47.812 - Spondylosis without myelopathy or radiculopathy... COMPARISON: 05/21/2019 TECHNIQUE: Multiplanar imaging performed through the brain with MultiHance 15 ml's IV. No acute infarcts are seen. Clarke-white matter differentiation is well preserved. Reidentified is mode rate to advanced patchy supratentorial white matter changes. These white matter foci extend above the lateral ventricles and are diffuse and symmetric bilaterally. No obvious progression or change. Cere bellum is spared. White matter lesions are closely associated with the corpus callosum but did not ap pear to contact the corpus callosum. Mild global atrophy. No susceptibility artifacts or prior lacunar infarcts. Ventricles and extra-axial spaces are normal. Clivus and pituitary gland are normal. Visualized posterior fossa and brainstem are also normal. Postcontrast images are negative for masses or vascular malformations. No enhancement within the whit e matter lesions. Dural venous sinuses are normal. Paranasal sinuses: Well aerated with no significant disease. Mastoid air cells: Normal. Calvarium and scalp: Normal. IMPRESSION: 1. Innumerable, patchy, supratentorial white matter foci. More than expected for patient of this age but also stable since 05/21/2019. As before differential includes hypertension, diabetes, Lyme diseas e and demyelinating disease. None of these foci enhance. There is no obvious progression. 2. No obvious involvement of the corpus callosum. 3. Minimal diffuse atrophy. 4. No enhancing foci within the brain.
[2023-03-15] MEDS: gadobenate dimeglumine 20 mL vial IV (16:00)
== END 2023-03-15 15:10 | disposition home or self-care (01) ==
LOC: RAD 15:09
PROVIDERS: PCP Family Medicine Adult Medicine; Visit Provider Specialist
DX: M47.812 Spondylosis without myelopathy or radiculopathy, cervical region (principal); G96.9 Disorder of central nervous system, unspecified; R25.1 Tremor, unspecified; G62.9 Polyneuropathy, unspecified; G37.9 Demyelinating disease of central nervous system, unspecified; R90.82 White matter disease, unspecified
CPT/HCPCS: 70553; A9577

== ENCOUNTER → 2023-04-22 13:22 | Outpatient (BNVA) | payer MEDICARE, MEDICAID, SELFPAY | PROVIDERS: PCP Family Medicine Adult Medicine; Visit Provider Specialist | DX: G62.9 Polyneuropathy, unspecified (principal); G37.9 Demyelinating disease of central nervous system, unspecified; G96.9 Disorder of central nervous system, unspecified; R25.1 Tremor, unspecified; I10 Essential (primary) hypertension; M47.812 Spondylosis without myelopathy or radiculopathy, cervical region; G60.3 Idiopathic progressive neuropathy; K74.60 Unspecified cirrhosis of liver | CPT/HCPCS: 36415; 82607; 82728; 83540; 83550; 99214 ==

== ENCOUNTER → 2023-05-17 15:03 | Outpatient (BNVA) | payer MEDICARE, MEDICAID, SELFPAY | PROVIDERS: PCP Family Medicine Adult Medicine; Visit Provider Orthopaedic Surgery | DX: M54.2 Cervicalgia (principal); M48.062 Spinal stenosis, lumbar region with neurogenic claudication | CPT/HCPCS: 72050; 99214 ==

== ENCOUNTER 2023-06-16 16:41 | Outpatient (CLI) | payer MEDICARE, MEDICAID, SELFPAY ==
--- NOTE | 2023-06-16 16:45 | MR_ITS ---
WS: [id number] MRI LUMBAR SPINE NONCONTRAST TECHNIQUE: Sagittal T1, T2 and STIR imaging. Axial T1 and T2 imaging. CLINICAL INFORMATION: back pain COMPARISON: MRI 05/21/2019 FINDINGS: Mild lumbar curve. No acute compression. Disc bulging worse at L4-L5 and L5-S1. No high-gra de central canal stenosis. Disc desiccation at L5-S1 has significantly progressed. 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 L1-L2: Normal. L2-L3: Mild facet arthropathy. Spinal canal and foramen are patent. L3-L4: Mild annular bulging with slight narrowing of the LEFT subarticular recess. Mild LEFT and no s ignificant RIGHT foraminal narrowing. Moderate facet arthropathy. L4-L5: Shallow central disc protrusion with slight impingement subarticular recess bilaterally and tr aversing L5 nerve roots. Small LEFT foraminal protrusion with mild LEFT foraminal narrowing. Moderate facet arthropathy. L5-S1: Disc desiccation. Moderate facet arthropathy. Spinal canal and foramen are patent. Mild facet arthropathy. Sclerotic lesion 8 mm partially visualized LEFT iliac adjacent to the SI joint unchanged since 2019 l ikely benign bone island. Visualized pelvic bony structures: Normal. Paravertebral soft tissues: Normal. MR/MR lumbar spine wo con* [id number] IMPRESSION: 1. Mild lumbar curve. No acute compression. 2. No high-grade central canal stenosis. 3. Mild central canal stenosis L4-5 with shallow central protrusion and slight impingement traversing L5 nerve roots bilaterally. This is unchanged. 4. Disc space narrowing L5-S1 has progressed. 5. Tiny LEFT foraminal protrusion L3-4 with mild LEFT foraminal narrowing and slight impingement on the exiting LEFT L3 nerve root. This appears new or progr essed compared to previous. 6. Small LEFT foraminal protrusion L4-5 slightly impinges the exiting L4 nerve root. This appears progressed compared to previous. 7. Moderate facet arthropathy L4-L5 and L5-S1.
== END 2023-06-16 16:42 | disposition home or self-care (01) ==
LOC: RAD 16:41
PROVIDERS: PCP Family Medicine Adult Medicine; Visit Provider Orthopaedic Surgery
DX: M54.9 Dorsalgia, unspecified (principal); M48.061 Spinal stenosis, lumbar region without neurogenic claudication; M47.816 Spondylosis without myelopathy or radiculopathy, lumbar region; M47.817 Spondylosis without myelopathy or radiculopathy, lumbosacral region
CPT/HCPCS: 72148

== ENCOUNTER 2023-07-06 14:38 | Oncology outpatient (recurring) (ONCR) | payer MEDICARE, MEDICAID, SELFPAY ==
[2023-06-27 14:24] VITALS: BP 141/87; PULSE 66; RESP 18; TEMP 36.4; O2SAT 96
[2023-06-27] MEDS: cyanocobalamin 1,000 mcg/mL SDV 1000 MCG IM (14:26)
[2023-06-28] MEDS: cyanocobalamin 1,000 mcg/mL SDV 1000 MCG IM (15:07)
[2023-06-28 15:10] VITALS: BP 127/90; PULSE 90; RESP 17; TEMP 36.7; O2SAT 97
[2023-06-29 14:22] VITALS: BP 144/81; PULSE 94; RESP 16; TEMP 36.1; O2SAT 96
[2023-06-29] MEDS: cyanocobalamin 1,000 mcg/mL SDV 1000 MCG IM (14:28)
[2023-07-06 14:47] VITALS: BP 124/79; PULSE 81; RESP 16; TEMP 36.2; O2SAT 99
[2023-07-06] MEDS: cyanocobalamin 1,000 mcg/mL SDV 1000 MCG IM (15:06)
== END 2023-07-08 23:59 | disposition home or self-care (01) ==
PROVIDERS: Visit Provider Specialist
DX: E53.8 Deficiency of other specified B group vitamins; Z53.9 Procedure and treatment not carried out, unspecified reason
CPT/HCPCS: 96372; J3420

== ENCOUNTER → 2023-07-07 14:25 | Outpatient (BNVA) | payer MEDICARE, MEDICAID, SELFPAY | PROVIDERS: Visit Provider Orthopaedic Surgery | DX: Z09 Encounter for follow-up examination after completed treatment for conditions other than malignant neoplasm (principal) | CPT/HCPCS: 99214 ==

== ENCOUNTER 2023-07-27 14:30 | Oncology outpatient (recurring) (ONCR) | payer MEDICARE, MEDICAID, SELFPAY ==
[2023-07-13 14:52] VITALS: BP 108/75; PULSE 97; RESP 18; TEMP 36.8; O2SAT 97
[2023-07-13] MEDS: cyanocobalamin 1,000 mcg/mL SDV 1000 MCG IM (14:53)
[2023-07-20 14:37] VITALS: BP 131/75; PULSE 85; RESP 17; TEMP 36.7; O2SAT 97
[2023-07-20] MEDS: cyanocobalamin 1,000 mcg/mL SDV 1000 MCG IM (14:48)
[2023-07-27] MEDS: cyanocobalamin 1,000 mcg/mL SDV 1000 MCG IM (14:46)
== END 2023-08-07 23:59 | disposition home or self-care (01) ==
PROVIDERS: Visit Provider Specialist
DX: E53.8 Deficiency of other specified B group vitamins (principal); Z53.9 Procedure and treatment not carried out, unspecified reason
CPT/HCPCS: 96372; J3420

== ENCOUNTER 2023-08-31 15:51 | Oncology outpatient (recurring) (ONCR) | payer MEDICARE, MEDICAID, SELFPAY ==
[2023-08-31] MEDS: cyanocobalamin 1,000 mcg/mL SDV 1000 MCG IM (16:00)
== END 2023-09-07 23:59 | disposition home or self-care (01) ==
LOC: ONCMED 15:52
PROVIDERS: Visit Provider Specialist
DX: E53.8 Deficiency of other specified B group vitamins (principal); Z79.899 Other long term (current) drug therapy
CPT/HCPCS: 96372; J3420

== ENCOUNTER → 2023-10-21 12:17 | Outpatient (BNVA) | payer MEDICARE, MEDICAID, SELFPAY | PROVIDERS: Visit Provider Specialist | DX: Z09 Encounter for follow-up examination after completed treatment for conditions other than malignant neoplasm; G37.9 Demyelinating disease of central nervous system, unspecified; G96.9 Disorder of central nervous system, unspecified; I10 Essential (primary) hypertension; M47.812 Spondylosis without myelopathy or radiculopathy, cervical region; G25.5 Other chorea; G60.3 Idiopathic progressive neuropathy; K74.60 Unspecified cirrhosis of liver; R03.0 Elevated blood-pressure reading, without diagnosis of hypertension; G43.019 Migraine without aura, intractable, without status migrainosus; F60.3 Borderline personality disorder; E53.8 Deficiency of other specified B group vitamins; G32.0 Subacute combined degeneration of spinal cord in diseases classified elsewhere | CPT/HCPCS: 99214 ==

== ENCOUNTER 2023-11-30 16:08 | Oncology outpatient (recurring) (ONCR) | payer MEDICARE, MEDICAID, SELFPAY ==
[2023-11-30] MEDS: cyanocobalamin 1,000 mcg/mL SDV 1000 MCG IM (16:15)
== END 2023-12-08 23:59 | disposition home or self-care (01) ==
PROVIDERS: Visit Provider Specialist
DX: E53.8 Deficiency of other specified B group vitamins (principal); Z79.899 Other long term (current) drug therapy; Z53.9 Procedure and treatment not carried out, unspecified reason
CPT/HCPCS: 96372; J3420